=== PATIENT | male | born 1940 | race Caucasian/White ===

== ENCOUNTER → 2020-12-08 | Outpatient (CLI) | payer MEDICARE ==
--- NOTE | 2020-12-08 21:41 | ECHO ---
ECHOCARDIOGRAM DATE OF PROCEDURE: 12/08/2020 Age: 80 Gender: Male Height: 180 cm Weight: 96 kg REFERRING PHYSICIAN: Dr. Daniel Adamson INDICATION: Atrial fibrillation MEASUREMENTS: IVS 1.2 cm LV 5.3 cm LVPW 1.1 cm LA 6.6 cm Aorta 3.8 cm Ascending aorta 4.1 cm Left atrium volume index 94 IVC 3.8 cm FINDINGS: This study is of acceptable technical quality. Patient is in atrial fibrillation with ventricularly paced rhythm. Left ventricle is of normal size. Mild left ventricular hypertrophy is noted. There is septal wall motion abnormality related to RV pacing. Overall preserved LV systolic function with estimated LVEF of 50-55%. Right ventricle is dilated and hypokinetic. There is severe bi-atrial enlargement. 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 Aortic valve is tricuspid. It is sclerotic, but mobility of cusps is preserved. Mitral and tricuspid valves appear grossly normal. Pulmonic valve was poorly visualized, but grossly appears normal. No pericardial effusion is noted. Inferior vena cava is dilated at 3.8 cm without appreciable collapse with inspiration, indicative of very high central venous pressure. Aortic root is dilated at 3.8 cm. Visualized segment of ascending aorta is also dilated at 4.1 cm. Aortic arch and abdominal aorta were not well seen. Doppler interrogation of aortic valve reveals no significant stenosis and mild insufficiency. There is mild to moderate mitral and tricuspid insufficiency. Calculated pulmonary artery pressure is in 50's corresponding to at minimum to moderate pulmonary hypertension. Evaluation of diastolic function is inconclusive due to underlying atrial fibrillation. CONCLUSIONS: 1. Study is of acceptable technical quality, underlying atrial fibrillation with ventricular pacing. 2. Normal LV size with mild LVH, septal wall motion abnormality due to RV pacing and overall LVEF estimated at 50-55%. 3. Dilated hypokinetic right ventricle. 4. Aortic sclerosis with no stenosis and mild insufficiency. 5. Mild to moderate mitral and tricuspid insufficiency. 6. Severe bi-atrial enlargement. 7. Very high central venous pressure and at least moderate pulmonary artery pressure. 8. Dilated aortic root and ascending aorta (3.8 and 4.1 cm respectively).
== END ==
LOC: M CARPUL 11:16
PROVIDERS: ATTEND Internal Medicine
DX: I48.91 Unspecified atrial fibrillation (principal)

== ENCOUNTER 2021-02-12 06:12 | Day surgery (SDC) | payer MEDICARE ==
[~2021-02-12] VITALS: Ht 177.8 cm; Wt 94.4 kg
[~2021-02-12 06:12] MED LIST: ATEN100T PO; DIGO0.123 PO; GLUC1CAP10 PO; LIDOCAINE 1% MDV 20ML VIAL SQ PRN; LISI10TA22 PO; MAGN250T22 PO; VITA-243 PO; VITMTA PO; WARF-58 PO; WARF-60 PO
--- OUTSIDE RECORDS SUMMARY | 2021-02-12 06:16 | CCD | Continuity of Care Document ---
Author Author Héctor FRANCE MD Organization Unknown Address [address] [place] [address] Phone [phone] Care Team Providers Care Dietetic Assistant Name Role Phone Navin Boston MD AUTM [phone] Problems Active Problems Provider Date Essential hypertension Jourdan France JR, MD Onset: 01/13/20 21 Social History Type Date Description Comments Sex Unknown ETOH Use Denies alcohol use Tobacco Use Start: Unknown Denies Smoking Recreational Drug Use Denies Drug Use Allergies and adverse reactions Active Allergies Criticality Reaction | Severity Comments Date Statins Unable to assess criticality 01/13/2021 Medications Active Medications SIG Qnty Indications Ordering Provide r Date Atenolol 100mg Tablets one ta b daily Unknown Digoxin 125mcg Tablets 1 by mouth every day Unknown Lisinopril 10mg Tablets one t ab daily Unknown Warfarin Sodium 3mg Tablets Sat, tues, Fri Unknown Warfarin Sodium 6mg Tablets Mon, Wed, Thurs, Sat Unknown Glucosamine Chondroitin 1500 Complex 1500Com Capsules once daily Unknown Multi Vitamin Tablets 2 by mouth every day Unknown Vitamin C 500mg Capsules 1 tab by mouth twice a day Unknown Magnesium Gluconate 250mg Tablets Every other day Unknown Immunizations Description No Information Available Vital Signs Date Vital Result Comment 01/13/2021 2:10pm BP Systolic 129 mmHg BP Diastolic 79 mmHg Heart Rate 96 /min Body Temperature 97.9 F Height 71 inches 5'11" Weight 210.38 lb BMI (Body Mass Index) 29.3 kg/m2 [place] Body Weight 172 lb Weight 95.426 kg BSA (Body Surface Area) 2.15 m2 Results Description No Information Available Procedures Description No Information Available Medical Devices Description No Information Available Encounters Description No Information Available Assessments Description No Information Available Plan of Treatment Future Appointment(s):* 02/22/2021 8:30 am - Jourdan France JR, MD at [facility] * 02/12/2021 7:30 am - Jourdan France JR, MD at [facility] Functional Status Description No Information Available Mental Status Description No Information Available Referrals Refer to Dr Reason for Referral Status Appt Date Jourdan France JR, MD RIGHT INGUINAL HERNIA Scheduled [address] [address] [phone]
--- OUTSIDE RECORDS SUMMARY | 2021-02-12 06:16 | CCD | Continuity of Care Document ---
Author Author Héctor FRANCE MD Organization Unknown Address [address] [place] [address] Phone [phone] Care Team Providers Care Mobile Product Manager Name Role Phone Navin Boston MD AUTM [phone] Problems Active Problems Provider Date Essential hypertension [...] lb BMI (Body Mass Index) 29.3 kg/m2 [place] Body Weight 172 lb Weight 95.426 kg BSA (Body Surface Area) 2.15 m2 Results Description No Information Available Procedures Description No Information Available Medical Devices Description No Information Available Encounters Description No Information Available Assessments Description No Information Available Plan of Treatment Future Appointment(s):* 02/22/2021 8:30 am - Jourdan France JR, MD at [facility] * 02/12/2021 9:15 am - Jourdan France JR, MD at [facility] Functional Status Description No Information Available Mental Status Description No Information Available Referrals Refer to Dr Reason for Referral Status Appt Date Jourdan France JR, MD RIGHT INGUINAL HERNIA Scheduled [address] [address] [phone]
--- OUTSIDE RECORDS SUMMARY | 2021-02-12 06:16 | CCD | Continuity of Care Document ---
Author Author Héctor FRANCE MD Organization Unknown Address [address] [place] [address] Phone [phone] Care Team Providers Care Food Safety Coordinator Name Role Phone Navin Boston MD AUTM [phone] Problems Active Problems Provider Date Essential hypertension [...] lb BMI (Body Mass Index) 29.3 kg/m2 [place] Body Weight 172 lb Weight 95.426 kg BSA (Body Surface Area) 2.15 m2 Results Description No Information Available Procedures Description No Information Available Medical Devices Description No Information Available Encounters Description No Information Available Assessments Description No Information Available Plan of Treatment Future Appointment(s):* 02/22/2021 8:30 am - Jourdan France JR, MD at [facility] * 02/12/2021 7:30 am - Jourdan France JR, MD at [facility] Functional Status Description No Information Available Mental Status Description No Information Available Referrals Refer to Dr Reason for Referral Status Appt Date Jourdan France JR, MD RIGHT INGUINAL HERNIA Scheduled [address] [address] [phone]
--- OUTSIDE RECORDS SUMMARY | 2021-02-12 06:16 | CCD | Continuity of Care Document ---
Author Author Héctor FRANCE MD Organization Unknown Address [address] [place] [address] Phone [phone] Care Team Providers Care Chef De Froid Name Role Phone Navin Boston MD AUTM [phone] Problems Active Problems Provider Date Essential hypertension [...] lb BMI (Body Mass Index) 29.3 kg/m2 [place] Body Weight 172 lb Weight 95.426 kg BSA (Body Surface Area) 2.15 m2 Results Description No Information Available Procedures Description No Information Available Medical Devices Description No Information Available Encounters Description No Information Available Assessments Description No Information Available Plan of Treatment Future Appointment(s):* 02/22/2021 8:30 am - Jourdan France JR, MD at [facility] * 02/12/2021 7:30 am - Jourdan France JR, MD at [facility] Functional Status Description No Information Available Mental Status Description No Information Available Referrals Refer to Dr Reason for Referral Status Appt Date Jourdan France JR, MD RIGHT INGUINAL HERNIA Scheduled [address] [address] [phone]
--- OUTSIDE RECORDS SUMMARY | 2021-02-12 06:16 | CCD | Continuity of Care Document ---
Author Author Héctor FRANCE MD Organization Unknown Address [address] [place] [address] Phone [phone] Care Team Providers Care Electrode Turner And Finisher Name Role Phone Navin Boston MD AUTM [phone] Problems Active Problems Provider Date Essential hypertension [...] lb BMI (Body Mass Index) 29.3 kg/m2 [place] Body Weight 172 lb Weight 95.426 kg BSA (Body Surface Area) 2.15 m2 Results Description No Information Available Procedures Date Code Description Status 01/13/2021 12335 Office/Outpatient New Moderate M DM 45-59 Minutes Completed Medical Devices Description No Information Available Encounters Type Date Location Provider Dx Diagnosis Office Visit 01/13/2021 2:15p [facility] Jourdan vance JR, MD K40.90 Unil inguinal hernia, w/o obst or gangr, not spcf as recur Assessments Date Code Description Provider 01/13/2021 K40.90 Unilateral inguinal hernia, without obstruction or gangrene, not specified as recurrent Jourdan France JR, MD Plan of Treatment Future Appointment(s):* 02/22/2021 8:30 am - Jourdan France JR, MD at [facility] * 02/12/2021 7:30 am - Jourdan France JR, MD at [facility] 01/13/2021 - Jourdan France JR, MD* K40.90 Unilateral inguinal hernia, without obstruction or gangrene, not specified as recurrent* Comments:* The patient has a symptomatic right inguinal hernia and at this point I recommendation is to proceed with operative repair of this symptomatic right inguinal hernia. We've discussed open as well as laparoscopic techniques of inguinal hernia repair. We discussed the risks as well as benefits associated with inguinal h ernia repair both open and laparoscopic techniques. The patient would like to proceed with a laparoscopic technique and I agree with this . We've discussed laparoscopic TEP versus robotic T AP and the benefits as well as the techniques associated with the procedure itself and the risks associated with the procedures. Typical Postoperative recovery was discussed with the patient and expected postoperative course. The patient agrees to proceed with robotic assisted laparoscopic right inguinal hernia repair Functional Status Description No Information Available Mental Status Description No Information Available Referrals Refer to Reason for Referral Status Appt Date Jourdan France JR, MD RIGHT INGUINAL HERNIA Scheduled [address] [place] [address] [phone]
--- OUTSIDE RECORDS SUMMARY | 2021-02-12 06:17 | CCD ---
Author Author [facility] Organization [facility] Address Unknown Phone Unavailable Care Team Providers Care Adjunct Instructor Name Role Phone MD KAM GARZA Unavailable Unavailable CHECKS, JOHNY REMOTE SCHI Unavailable Unavailable Rob France JR, MD Unavailable Unavailable Rob France JR, MD Unavailable Unavailable Rob France JR, MD Unavailable Unavailable Rob France JR, MD Unavailable Unavailable Rob France JR, MD Unavailable Unavailable Rob France JR, MD Unavailable Unavailable Rob France JR, MD Unavailable Unavailable Rob France JR, MD Unavailable Unavailable Rob France JR, MD Unavailable Unavailable Rob France JR, MD Unavailable Unavailable Rob France JR, MD Unavailable Unavailable Rob France JR, MD Unavailable Unavailable Rob France JR, MD Unavailable Unavailable oRb France JR, MD Unavailable Unavailable Rob France JR, MD Unavailable Unavailable Rob France JR, MD Unavailable Unavailable Rob France JR, MD Unavailable Unavailable Rob Franec JR, MD Unavailable Unavailable Rob France JR, MD Unavailable Unavailable Rob France JR, MD Unavailable Unavailable Rob France JR, MD Unavailable Unavailable Rob France JR, MD Unavailable Unavailable Rob France JR, MD Unavailable Unavailable Rob France JR, MD Unavailable Unavailable Rob France JR, MD Unavailable Unavailable Rob France JR, MD Unavailable Unavailable Rob France JR, MD Unavailable Unavailable Rob France JR, MD Unavailable Unavailable Rob France JR, MD Unavailable Unavailable Rob France JR, MD Unavailable Unavailable Rob France JR, MD Unavailable Unavailable Rob France JR, MD Unavailable Unavailable Rob France JR, MD Unavailable Unavailable Rob France JR, MD Unavailable Unavailable Rob France JR, MD Unavailable Unavailable Rob France JR, MD Unavailable Unavailable Rob France JR, MD Unavailable Unavailable Rob Fracne JR, MD Unavailable Unavailable Rob France JR, MD Unavailable Unavailable Rob France JR, MD Unavailable Unavailable Rob France JR, MD Unavailable Unavailable Rob France JR, MD Unavailable Unavailable Rob France JR, MD Unavailable Unavailable Rob France JR, MD Unavailable Unavailable Rob France JR, MD Unavailable Unavailable Rob France JR, MD Unavailable Unavailable Rob France JR, MD Unavailable Unavailable Rob France JR, MD Unavailable Unavailable Rob France JR, MD Unavailable Unavailable Rob France JR, MD Unavailable Unavailable Rob France JR, MD Unavailable Unavailable Rob France JR, MD Unavailable Unavailable Rob France JR, MD Unavailable Unavailable Rob France JR, MD Unavailable Unavailable SMART, JOSH L Unavailable Unavailable Smart MD, Josh L Unavailable Smart MD, Josh L Unavailable Smart MD, Josh L Unavailable Smart MD, Josh L Unavailable Smart MD, Josh L Unavailable Smart MD, Johs L Unavailable Smart MD, Josh L Unavailable Smart MD, Josh L Unavailable Smart MD, Josh L Unavailable Smart MD, Josh L Unavailable Smart MD, Josh L Unavailable Smart MD, Josh L Unavailable Smart MD, Josh L Unavailable Smart MD, Josh L Unavailable Smart MD, Josh L Unavailable Smart MD, Josh L Unavailable Smart MD, Josh L Unavailable Smart MD, Josh L Unavailable Smart MD, Josh L Unavailable Smart MD, Josh L Unavailable Smart MD, Ojsh L Unavailable Smart MD, Josh L Unavailable Smart MD, Josh L Unavailable Smart MD, Josh L Unavailable Smart MD, Josh L Unavailable Smart MD, Josh L Unavailable Smart MD, Josh L Unavailable Smart MD, Josh L Unavailable Smart MD, Josh L Unavailable Smart MD, Josh L Unavailable Smart MD, Josh L Unavailable Smart MD, Josh L Unavailable Smart MD, Josh L Unavailable Smart MD, Josh L Unavailable Smart MD, Josh L Unavailable Smart MD, Josh L Unavailable Smart MD, Josh L Unavailable Smart MD, Josh L Unavailable Smart MD, Josh L Unavailable Smart MD, Josh L Unavailable Smart MD, Josh L Unavailable Smart MD, Josh L Unavailable Smart MD, Josh L Unavailable Smart MD, Josh L Unavailable Smart MD, Josh L Unavailable Smart MD, Josh L Unavailable Smart MD, Josh L Unavailable Smart MD, Josh L Unavailable Smart MD, Josh L Unavailable Smart MD, Josh L Unavailable Smart , Josh L Unavailable + Smart MD, Josh L Unavailable + Smart MD, Josh L Unavailable + Smart MD, Josh L Unavailable + Smart MD, Josh L Unavailable + Smart MD, Josh L Unavailable + JOSH BLANCAS Unavailable Unavailable Equinozzi, II Kam Unavailable Unavailable Equinozzi, II Kam Unavailable Unavailable Equinozzi, II Kam Unavailable Unavailable Equinozzi, II Kam Unavailable Unavailable Equinozzi, II Kam Unavailable Unavailable Equinozzi, II Kam Unavailable Unavailable Equinozzi, II Kam Unavailable Unavailable Equinozzi, II Kam Unavailable Unavailable Equinozzi, II Kam Unavailable Unavailable Equinozzi, II Kam Unavailable Unavailable Equinozzi, II Kam Unavailable Unavailable Equinozzi, II Kam Unavailable Unavailable Equinozzi, II Kam Unavailable Unavailable Equinozzi, II Kam Unavailable Unavailable Equinozzi, II Kam Unavailable Unavailable Equinozzi, II Kam Unavailable Unavailable Equinozzi, II Kam Unavailable Unavailable Equinozzi, II Kam Unavailable Unavailable Equinozzi, II Kam Unavailable Unavailable Equinozzi, II Kam Unavailable Unavailable Equinozzi, II Kam Unavailable Unavailable Equinozzi, II Kam Unavailable Unavailable Equinozzi, II Kam Unavailable Unavailable Equinozzi, II Kam Unavailable Unavailable Equinozzi, II Kam Unavailable Unavailable Equinozzi, II Kam Unavailable Unavailable Equinozzi, II Kam Unavailable Unavailable Equinozzi, II Kam Unavailable Unavailable Equinozzi, II Kam Unavailable Unavailable Equinozzi, II Kam Unavailable Unavailable Equinozzi, II Kam Unavailable Unavailable Equinozzi, II Kam Unavailable Unavailable Equinozzi, II Kam Unavailable Unavailable Equinozzi, II Kam Unavailable Unavailable Equinozzi, II Kam Unavailable Unavailable MD CINDY RAMOS Unavailable Unavailable DARIUS DISLAGNCHIUQI Unavailable Unavailable OTHER, PHYSICIAN REFERRING Unavailable UnavailKUNAL Flores MD Unavailable Unavailable KUNAL LUCAS MD Unavailable Unavailable KUNAL LUCAS MD Unavailable Unavailable KUNAL LUCAS MD Unavailable Unavailable LANCEKUNAL Estrada MD Unavailable Unavailable KUNAL LUCAS MD Unavailable Unavailable KUNAL LUCAS MD Unavailable Unavailable KUNAL LUCAS MD Unavailable Unavailable KUNAL LUCAS MD Unavailable Unavailable KUNAL LCUAS MD Unavailable Unavailable KUNAL LUCAS MD Unavailable Unavailable KUNAL LUCAS MD Unavailable Unavailable LANCEKUNAL Estrada MD Unavailable Unavailable KUNAL LUCAS MD Unavailable Unavailable JOSH BLANCAS Unavailable Unavailable Ileana Gan MD Unavailable Unavailable Ileana Gan MD Unavailable Unavailable Ileana Gan MD Unavailable Unavailable Ileana aGn MD Unavailable Unavailable DEFAULT, PROVIDER Unavailable Unavailable BROOKE, FILIPPO PA Unavailable Unavailable BROOKE, FILIPPO PA Unavailable Unavailable BROOKE, FILIPPO PA Unavailable Unavailable BROOKE, FILIPPO PA Unavailable Unavailable BROOKE, FILIPPO PA Unavailable Unavailable BROOKE, FILIPPO PA Unavailable Unavailable BROOKE, FILIPPO PA Unavailable Unavailable BROOKE, FILIPPO PA Unavailable Unavailable BROOKE, FILIPPO PA Unavailable Unavailable BROOKE, FILIPPO PA Unavailable Unavailable BROOKE, FILIPPO PA Unavailable Unavailable MEL, S KUNAL MD Unavailable Unavailable LEAL, S KUNAL MD Unavailable Unavailable LEAL, S KUNAL MD Unavailable Unavailable LEAL, S KUNAL MD Unavailable Unavailable LEAL, S KUNAL MD Unavailable Unavailable LEAL, S KUNAL MD Unavailable Unavailable LEAL, S KUNAL MD Unavailable Unavailable LEAL, S KUNAL MD Unavailable Unavailable LEAL, S KUNAL MD Unavailable Unavailable LEAL, S KUNAL MD Unavailable Unavailable LEAL, S KUNAL MD Unavailable Unavailable LEAL, S KUNAL MD Unavailable Unavailable LEAL, S KUNAL MD Unavailable Unavailable LEAL, S KUNAL MD Unavailable Unavailable LEAL, S KUNAL MD Unavailable Unavailable LEAL, S KUNAL MD Unavailable Unavailable LEAL, S KUNAL MD Unavailable Unavailable LEAL, S KUNAL MD Unavailable Unavailable LEAL, S KUNAL MD Unavailable Unavailable LEAL, S KUNAL MD Unavailable Unavailable LEAL, S KUNAL MD Unavailable Unavailable LEAL, S KUNAL MD Unavailable Unavailable LEAL, S KUNAL MD Unavailable Unavailable LEAL, S KUNAL MD Unavailable Unavailable LEAL, S KUNAL MD Unavailable Unavailable LEAL, S KUNAL MD Unavailable Unavailable LEAL, S KUNAL MD Unavailable Unavailable LEAL, S KUNAL MD Unavailable Unavailable LEAL, S KUNAL MD Unavailable Unavailable LEAL, S KUNAL MD Unavailable Unavailable LEAL, S KUNAL MD Unavailable Unavailable LEAL, S KUNAL MD Unavailable Unavailable ANTICOAG, GENEVA Unavailable Unavailable Rob France JR, MD Unavailable Unavailable Rob France JR, MD Unavailable Unavailable Rob France JR, MD Unavailable Unavailable Rob France JR, MD Unavailable Unavailable Rob France JR, MD Unavailable Unavailable Rob France JR, MD Unavailable Unavailable Rob France JR, MD Unavailable Unavailable Rob France JR, MD Unavailable Unavailable Rob France JR, MD Unavailable Unavailable Rob France JR, MD Unavailable Unavailable Rob France JR, MD Unavailable Unavailable Rob France JR, MD Unavailable Unavailable Rob France JR, MD Unavailable Unavailable Rob rFance JR, MD Unavailable Unavailable Rob France JR, MD Unavailable Unavailable Rob France JR, MD Unavailable Unavailable Rob France JR, MD Unavailable Unavailable Rob France JR, MD Unavailable Unavailable oRb France JR, MD Unavailable Unavailable Rob France JR, MD Unavailable Unavailable Rob France JR, MD Unavailable Unavailable Rob France JR, MD Unavailable Unavailable Rob France JR, MD Unavailable Unavailable Rob France JR, MD Unavailable Unavailable Rob France JR, MD Unavailable Unavailable Rob France JR, MD Unavailable Unavailable Rob France JR, MD Unavailable Unavailable Rob France JR, MD Unavailable Unavailable Rob France JR, MD Unavailable Unavailable Rob France JR, MD Unavailable Unavailable Rob France JR, MD Unavailable Unavailable Rob France JR, MD Unavailable Unavailable Rob France JR, MD Unavailable Unavailable Rob France JR, MD Unavailable Unavailable Rob France JR, MD Unavailable Unavailable Rob France JR, MD Unavailable Unavailable Rob France JR, MD Unavailable Unavailable Rob France JR, MD Unavailable Unavailable Rob France JR, MD Unavailable Unavailable Rob France JR, MD Unavailable Unavailable Rob France JR, MD Unavailable Unavailable Rob France JR, MD Unavailable Unavailable Rob France JR, MD Unavailable Unavailable Rob France JR, MD Unavailable Unavailable Rob France JR, MD Unavailable Unavailable Rob France JR, MD Unavailable Unavailable Rob France JR, MD Unavailable Unavailable Rbo France JR, MD Unavailable Unavailable Rob France JR, MD Unavailable Unavailable Rob France JR, MD Unavailable Unavailable Rob France JR, MD Unavailable Unavailable Rob France JR, MD Unavailable Unavailable Rob France JR, MD Unavailable Unavailable Rob France JR, MD Unavailable Unavailable Josh Blancas Unavailable Unavailable Josh Blancas Unavailable Unavailable NON, PHYSICIAN STAFF Unavailable Unavailable Re-disclosure Warning The records that you are about to access may contain information from federally-assisted alcohol or drug abuse programs. If such information is present, then the following federally mandated warning applies: This information has been disclosed to you from records protected by federal confidentiality rules (42 CFR part 2). The federal rules prohibit you from making any further disclosure of this information unless further disclosure is expressly permitted by the written consent of the person to whom it pertains or as otherwise permitted by 42 CFR part 2. A general authorization for the release of medical or other information is NOT sufficient for this purpose. The Federal rules restrict any use of the information to criminally investigate or prosecute any alcohol or drug abuse patient.The records that you are about to access may contain highly sensitive health information, the redisclosure of which is protected by Article 27-F of the [facility] Public Health law. If you continue you may have access to information: Regarding HIV / AIDS; Provided by facilities licensed or operated by the [facility] Office of Mental Health; or Provided by the [facility] Office for People With Developmental Disabilities. If such information is present, then the following [facility] mandated warning applies: This information has been disclosed to you from confidential records which are protected by state law. State law prohibits you from making any further disclosure of this information without the specific written consent of the person to whom it pertains, or as otherwise permitted by law. Any unauthorized further disclosure in violation of state law may result in a fine or retirement sentence or both. A general authorization for the release of medical or other information is NOT sufficient authorization for further disc losure. Encounters Encounter Providers Location Date Indications Data Source(s ) Outpatient Attender: Jourdan Tolentino itter: Jourdan Dunnesultant: KUNAL LEAL MD 02/08/2021 11:02:00 AM EST - 02/08/2021 11:02:00 AM EST LAB TEST [facility] LAB TEST Outpatient Attender: Jourdan Tolentino itter: Jourdan Jollyant: KUNAL LEAL MD 02/05/2021 04:30:55 PM EDT COVID SCREENING [facility] COVID SCREENING Admission cancelled. Disregard status an d admitted date. Outpatient Attender: FILIPPO NOYOLA CPSCAORT-CPSLADER 07/2020 02:19:00 PM EDT - 02/04/2021 02:20:00 PM EDT D48.9 [facility] D48.9 Patient discharged. Outpatient Attender: Miguelito Bruce er: REFERRING OTHERAdmitter: Miguelito BlancasConsultant: KUNAL LEAL MD 02/01/2021 11:28:00 AM E DT Physical therapy [facility] Physical therapy Outpatient Attender: Desmond Blancas MDReferrer: Desmond Blancas MD 01/29/2021 06:26:58 AM EDT [facility] Outpatient Attender: KAM Capps mitter: KAM EQUINOZZIConsultant: KUNAL LEAL MD 008 01/19/2021 09:49:00 AM EDT - 01/19/2021 09:49:00 AM EDT STANDING ORDER [facility] STANDING ORDER Outpatient Attender: Jourdan Weir/Emil/Nick/Gerry espinal 01/13/2021 02:15:00 PM EDT [facility] ([facility] actice, ) Outpatient Attender: KAM MOREIRAINONia mitter: KAM EQUINOZZIConsultant: KUNAL LEAL MD 008 01/06/2021 09:36:00 AM EDT - 01/06/2021 09:36:00 AM EDT Lab test [facility] Lab test Outpatient Attender: PROVIDER DEFAULTReferrer: ARMANDO LUCAS MD RGHUSHEN-RGHRADHEN 01/05/2021 09:07:27 AM EDT - 01/05/2021 11:59:27 PM EDT [facility] Patient discharged. Outpatient Attender: KUNAL LUCAS MDReferrer: Terrance Garza RGHUSHEN-RRHORTHHEN 01/05/2021 09:06:57 AM EDT - 01/05/2021 09:37:45 AM EDT [facility] Patient discharged. Outpatient Attender: Miguelito Bruce er: DR HERNANDEZ OTHERAdmitter: Miguelito BlancasConsultant: KUNAL LEAL MD 12/31/2020 03:51:1 6 PM EDT - 01/31/2021 11:26:00 AM EDT PHYSICAL THERAPY [facility] PHYSICAL THERAPY Patient discharged. Outpatient Attender: Miguelito Bhatiaitt er: Miguelito BlancasConsultant: KUNAL LEAL MD 12/29/2020 01:44:00 PM EDT - 12/31/2020 10:52:00 AM EDT PHYSICAL THERAPY [facility] PHYSICAL THERAPY Patient discharged. Outpatient Attender: Desmond Blancas MDReferrer: Kam Garza 12/25/2020 08:12:34 AM EDT [facility] Outpatient Attender: KAM Capps mitter: KAM MOREIRAINOLUXIConsultant: KUNAL LEAL MD 008 12/22/2020 09:01:00 AM EDT - 12/22/2020 09:01:00 AM EDT STANDING ORDER [facility] STANDING ORDER Outpatient Attender: Desmond SINeferrer: Kam Garza 12/08/2020 03:14:28 PM EDT [facility] Outpatient Referrer: Desmond BLANCAS MOB-MOB.PAT 12/08/2020 09: 00:54 AM EDT - 12/08/2020 09:00:59 AM EDT [facility] Outpatient Attender: MD CINDY RAMOS WNYSCHICLF-WNYSCHICL F 12/01/2020 02:43:16 PM EDT - 12/01/2020 03:23:44 PM EDT [facility] Patient discharged. Outpatient Attender: JUICE RADER WNYOBFLMAG-WNYIMFLMAG 11/30/2020 12:53:42 PM EDT [facility] Outpatient Attender: DARIUS DISLA WNYOBFLMAG- WNYIMFLMAG 11/30/2020 12:50:51 PM EDT - 11/30/2020 01:34:42 PM EDT [facility] Patient discharged. Outpatient Attender: Desmond BLANCASReferrer: Desmond BLANCAS MOB-MOB.PAT 11/26/2020 12:07:47 PM EDT - 11/26/2020 01:24:44 PM EDT [facility] Outpatient Attender: KAM Capps mitter: KAM EQUINOZZIConsultant: KUNAL LEAL MD 008 11/25/2020 10:03:00 AM EDT - 11/25/2020 08:06:00 AM EDT LAB TEST [facility] LAB TEST Patient discharged. Outpatient Attender: BRIDGET JACK RGHSCHICW-RGHSCHICW 2020 04:00:33 PM EDT - 11/02/2020 11:59:33 PM EDT [facility] Patient discharged. Outpatient Attender: KAM Capps mitter: KAM Ronquillosultant: KUNAL LEAL MD 008 10/28/2020 08:51:00 AM EDT - 10/28/2020 08:51:00 AM EDT LAB [facility] LAB Inpatient Attender: Desmond BLANCASAttender: Desmond SMARTAdmitter: Desmond SM ART [id number] 10/19/2020 03:29:57 PM EDT - 12/12/2020 11:21:00 AM EDT [facility] Patient discharged. Outpatient Attender: KAM Capps mitter: KAM Ronquillosultant: KUNAL LEAL MD 008 09/30/2020 08:34:00 AM EDT - 09/30/2020 08:34:00 AM EDT Lab test [facility] Lab test Outpatient Attender: JOSH Hartmannsuant: STAFF ROSEN 09/07/2020 01:09:00 PM EDT - 09/07/2020 02:09:00 PM EDT [facility] Outpatient Attender: KAM Capps mitter: KAM Ronquillosultant: KUNAL LEAL MD 008 09/03/2020 09:01:00 AM EDT - 09/03/2020 09:01:00 AM EDT LAB TEST [facility] LAB TEST Outpatient Attender: Deshawn Gan MD WNYSCHICLF-WNYSCHICLF 10:35:58 AM EDT - 08/20/2020 11:27:[address] [facility] Patient discharged. Outpatient Attender: Kam Garza WNYOBFLMAG-WNYIMFLMAG 08/11/2020 12:47:56 PM EDT - 08/11/2020 01:23:15 PM EDT [facility] Patient discharged. Outpatient Attender: Desmond Blancas MDReferrer: Kam Moreirainobarbie 08/07/2020 06:29:43 AM EDT [facility] Recurring Patient Referrer: Kam Equinozzi 08/06/2020 10 :35:46 AM EDT [facility] Recurring Patient Referrer: Kam Equinozzi 08/06/2020 10 :34:59 AM EDT [facility] Recurring Patient Referrer: Kam Equinozzi 08/06/2020 10 :31:05 AM EDT [facility] Outpatient Attender: KAM Li tender: DR HERNANDEZ OTHERAdmitter: KAM LUONGLUXIConsultant: KUNAL LEAL MD 008 08:41:00 AM EDT - 08/05/2020 08:41:00 AM EDT LAB TEST [facility] LAB TEST Recurring Patient Referrer: Kam Moreirainoluxi 06/11/2020 11 :26:08 AM EST [facility] Recurring Patient Referrer: Kam Equinozzi 06/11/2020 11 :18:42 AM EST [facility] Outpatient Attender: BRIDGET JACK RGHSCHICW-RGHSCHICW 2019 02:12:11 PM EST - 03/12/2020 11:59:11 PM EST [facility] Patient discharged. Outpatient Founder And Chief Executive Officer: KUNAL LEAL MD 008 1 04/20/2019 08:20:00 AM EST - 02/19/2020 08:20:00 AM EST Lab test [facility] Lab test Outpatient Attender: KUNAL LEAL MD Admitter: KUNAL LEAL MDConsultant: KUNAL LEAL MD 008 01/22/2020 08:44:00 AM EDT - 01/22/2020 08:44:00 AM EDT Lab test [facility] Lab test Patient discharged. Outpatient Attender: KUNAL LEAL MD Admitter: KUNAL LEAL MDConsultant: KUNAL LEAL MD 008 12/25/2019 08:11:00 AM EDT - 12/25/2019 08:11:00 AM EDT Lab test [facility] Lab test Immunizations Vaccine Date Status Description Data Source(s) COVID-19 VACCINE Moderna 02/03/2021 12:00:00 AM EDT completed [place] Vaccine Series Complete: YESThis Data wa s Submitted to [facility] Via [employer]. COVID-19 VACCINE Moderna 06/11/2020 12:00:00 AM EST completed [place] Vaccine Series Complete: YESThis Data wa s Submitted to [facility] [employer]. COVID-19 VACCINE Moderna 06/03/2020 12:00:00 AM EST completed [place] Vaccine Series Complete: YESThis Data wa s Submitted to [facility] [employer]. 207 06/03/2020 12:00:00 AM EST completed <td I D="[id number]">Covid-19 (Moderna)</td><td>06/03/2020, 05/06/2020</td><td></td> [facility] COVID-19 VACCINE Moderna 05/14/2020 12:00:00 AM EST completed [place] Vaccine Series Complete: YESThis Data wa s Submitted to [facility] [employer]. 207 05/06/2020 12:00:00 AM EST completed <td I D="[id number]">Covid-19 (Moderna)</td><td>06/03/2020, 05/06/2020</td><td></td> [facility] COVID-19 VACCINE Moderna 05/06/2020 12:00:00 AM EST completed [place] Vaccine Series Complete: YESThis Data wa s Submitted to [facility] Via [employer]. Medications Medication Brand Name Start Date Product Form Dose Route Admi nistrative Instructions Pharmacy Instructions Status Indications Reaction Description Data Source(s) Bisacodyl 10 MG Rectal Suppository bisacodyl (DULCOLAX ) suppository 10 mg bisacodyl (DULCOLAX) suppository 10 mg 12/13/2020 06:00:00 AM EDT 10 mg Rectal active 10 mg, Rectal, Once, On 12/13/20 at 0600, For 1 dose, Post- op
Hold for
[facility] Medication administered onsite 0.3 ML Enoxaparin sodium 100 MG/ML Prefi lled Syringe enoxaparin (LOVENOX) syringe 30 mg enoxaparin (LOVENOX) syringe 30 mg 12/12/2020 09:00:00 AM EDT 30 mg Subcutaneous active 30 mg, Subcutaneous, Every 12 hours (scheduled), First dose on 12/12/20 at 0900, Post-op
If platelet count is less than 90,000 or hematocrit is less than 25, or if there is a 5 point decrease in hematocrit, do not give the dose and call physician/designee.
[facility] Medication administered onsite Magnesium Hydroxide 80 MG/ML Oral Suspen theresa magnesium hydroxide (MILK OF MAGNESIA) 400 MG/5ML suspension 30 mL magnesium hydroxide (MILK OF MAGNESIA) 4 00 MG/5ML suspension 30 mL 12/12/2020 09:00:00 AM EDT 30 mL Oral active 30 mL, Oral, Daily, First dose on 12/12/20 at 0900, Post-op
hold for loose stools
[facility] Medication administered onsite tramadol hydrochloride 50 MG Oral Tablet traMADol (ULT CHARLIE) tablet 25 mg traMADol (ULTRAM) tablet 25 mg 12/12/2020 07:46:07 AM EDT 25 mg Oral active 25 mg, Oral, Every 6 hours PRN, moderate pain (4-6), Starting on 12/12/20 at 0746, For 7 days [facility] Medication administered onsite tramadol hydrochloride 50 MG Oral Tablet traMADol (ULT CHARLIE) 50 MG tablet traMADol (ULTRAM) 50 MG tablet 12/12/2020 12:00:00 AM EDT mg Oral active Take 0.5-1 tablets (25-50 mg total) by mouth every 6 (six) hours as needed for pain Max Daily Amount: 200 mg [facility] Docusate Sodium 50 MG / sennosides, [facility] 8.6 MG Oral Tablet senna-docusate (PERICOLACE) 8.6-50 MG 2 tablet senna-docusate (PERICOLACE) 8.6-50 MG 2 tablet 12/11/2020 09:00:00 PM EDT 2 {tbl} Oral active 2 tablet, Oral, Nightly, First dose on Mon12/11/20 at 2100, Post-op
hold for loose stools
[facility] Medication administered onsite Warfarin Sodium 3 MG Oral Tablet warfarin (COUMADIN) t ablet 6 mg warfarin (COUMADIN) tablet 6 mg 12/11/2020 05:00:00 PM EDT 6 mg Oral completed 6 mg, Oral, WAR17, First dose on Mon12/11/20 at 1700, For 1 dose
For administration and preparation considerations, refer to Hazardous Drugs in the Workplace Policy on Intranet.
[facility] Medication administered onsite Digoxin 0.125 MG Oral Tablet digoxin (LANOXIN) tablet 125 mcg digoxin (LANOXIN) tablet 125 mcg 12/11/2020 05:00:00 PM EDT 125 ug Oral act mil 125 mcg, Oral, Daily, First dose on Mon12/11/20 at 1700 [facility] Medication administered onsite 1 ML Ketorolac Tromethamine 15 MG/ML [place] tr[place] ketorolac (TORADOL) injection 15 mg ketorolac (TORADOL) injection 15 mg 12/11/2020 03:00:00 PM EDT 15 mg Intravenous active 15 mg, Intrav enous, Every 6 hours (scheduled), First dose on Mon12/11/20 at 1500, For 24 hours, Post-op
Pharmacy may renally dose per NSAID policy.
[facility] Medication administered onsite Acetaminophen 500 MG Oral Tablet acetaminophen (TYLENO L) tablet 1,000 mg acetaminophen (TYLENOL) tablet 1,000 mg 12/11/2020 03:00:00 PM EDT 1000 mg Oral active 1,000 mg, Oral , Every 6 hours (scheduled), First dose on Mon12/11/20 at 1500, Post-op [facility] Medication administered onsite normal saline flush 0.9 % injection 3 mL [id number] 12/11/2020 02:00:00 PM EDT 3 mL Intravenous active 3 mL , Intravenous, Every 8 hours (scheduled), First dose on Mon12/11/20 at 1400, Post-op
flush per protocol, D/C Main IV fluid if appropriate
[facility] Medication administered onsite Atenolol 50 MG Oral Tablet atenolol (TENORMIN) tablet 100 mg atenolol (TENORMIN) tablet 100 mg 12/11/2020 02:00:00 PM EDT 100 mg Oral acti ve 100 mg, Oral, Daily, First dose on Mon12/11/20 at 1400 [facility] Medication administered onsite cefazolin (ANCEF) injection 2 g drug or medication 12/11/2020 02:00 :00 PM EDT 2 g Intravenous active Perioperative Pharmacoprophy laxis 2 g, Intravenous, Administer over 6 Minutes, Every 8 hours (relative), First dose on Mon12/11/20 at 1400, For 3 doses, Post-op
Start 4 hours after pre-op dose, then every 8 hours x 2 doses. Time pre-op dose hun RN may administer IV push or infuse this medication through syringe adapter set ref [id number]. Flush line after use
[facility] Perioperative Pharmacoprophylaxis Medication administered onsite sodium chloride 0.9% (NS) infusion 2540-0599-62 12/11/2020 02:00:00 P M EDT Intravenous active at 100 mL/hr, Intravenous, Continuous, Starting on Mon12/11/20 at 1400, Post-op [facility] Medication administered onsite Patient on Coumadin during hospitalizati on. (To order Coumadin on discharge click the don t prescribe button and go to new orders on discharge section. Coumadin can be ordered there. Alternatively, reconcile the pre admission Coumadin dose if it appears on the list below) drug or medication 12/11/2020 12:53:57 PM EDT 1 {each} active 1 each, Mi scellaneous, Daily Coumadin Notification (1000), Starting on Mon12/11/20 at 1253, Until Discontinued
Indication for Warfarin: Atrial Fibrillation
Target INR: 2 to 3 [facility] Medication administered onsite oxyCODONE (ROXICODONE) immediate release tablet 2.5 mg [id number] [id number] 12/11/2020 12:53:57 PM EDT 2.5 mg Oral active 2.5 mg, Oral, 2 times daily PRN, for pre-emptive pain control prior to PT, Starting on Mon12/11/20 at 1253, For 7 days, Post-op
Administer 1 hour prior to PT
[facility] Medication administered onsite Metoclopramide 10 MG Oral Tablet metoclopramide (JESSICA N) tablet 10 mg metoclopramide (REGLAN) tablet 10 mg 12/11/2020 12:53:56 PM EDT 10 mg Oral active 10 mg, Oral, Melanie ry 6 hours PRN, nausea, Starting on Mon12/11/20 at 1253, Post-op [facility] Medication administered onsite 2 ML Metoclopramide 5 MG/ML Prefilled Sy ringe metoclopramide (REGLAN) injection 10 mg metoclopramide (REGLAN) injection 10 mg 12/11/2020 12:53:56 PM E DT 10 mg Intravenous active 10 mg, I ntravenous, Every 6 hours PRN, for N/V if unable to take PO metoclopramide, Starting on Mon12/11/20 at 1253, Post-op [facility] Medication administered onsite metaxalone 800 MG Oral Tablet metaxalone (SKELAXIN) ta blet 800 mg metaxalone (SKELAXIN) tablet 800 mg 12/11/2020 12:53:56 PM EDT 800 mg Oral active 800 mg, Oral, Every 8 hours PRN, muscle spasms, Starting on Mon12/11/20 at 1253, Post-op
First line for all patients
[facility] Medication administered onsite Ondansetron 4 MG Disintegrating Oral Tab let ondansetron (ZOFRAN-ODT) disintegrating tablet 4 mg ondansetron (ZOFRAN-ODT) disintegrating tablet 4 mg 12/11/2020 12:53:56 PM EDT 4 mg Oral active 4 mg, Oral, Every 4 hours PRN, nausea, vomiting, for N/V not relieved by metoclopramide, Starting on Mon12/11/20 at 1253, Post-op [facility] Medication administered onsite ondansetron (ZOFRAN) injection 4 mg [id number] 12/11/2020 12:53:5 6 PM EDT 4 mg Intravenous active 4 mg, In travenous, Every 4 hours PRN, nausea, vomiting, for N/V not controlled by Reglan and unable to take PO ondansetron, Starting on Mon12/11/20 at 1253, Post-op [facility] Medication administered onsite fluticasone (FLONASE) 50 MCG/ACT nasal spray 1 spray [id number] 12/11/2020 12:53:56 PM EDT 1 {spray} Nasal active 1 spray, Nasal, Daily PRN, congestion, allergies, Starting on Mon12/11/20 at 1253 [facility] Medication administered onsite fentaNYL Citrate (PF) (SUBLIMAZE) injection 25 mcg [id number] -[id number] 12/11/2020 12:53:56 PM EDT 25 ug Intravenous active 25 mcg, Intravenous, Every 3 hours PRN, for severe breakthrough pain (7-10) if oral opioid ineffective within one hour, Starting on Mon12/11/20 at 1253, For 7 days, Post-op [facility] Medication administered onsite Mineral Oil 1000 MG/ML Enema mineral oil enema 1 enema mineral oil enema 1 enema 12/11/2020 12:53:56 PM EDT 1 {enema} Rectal active 1 enema, Rectal, Daily PRN, constipation, unrelieved by MOM, Starting on Mon12/11/20 at 1253, Post-op
hold for loose stools
[facility] Medication administered onsite Oxycodone Hydrochloride 5 MG Oral Tablet oxyCODONE (ROXICODONE) immediate release tablet 5 mg oxyCODONE (ROXICODONE) immediate release tablet 5 mg 12/11/2020 12:53:56 PM EDT 5 mg Oral active 5 mg, Oral, Every 4 hours PRN, severe pain (7-10), Starting on Mon12/11/20 at 1253, For 7 days, Post-op [facility] Medication administered onsite Aluminum Hydroxide 40 MG/ML / Magnesium Hydroxide 40 MG/ML / Simethicone 4 MG/ML Oral Suspension alum & mag hydroxide-simeth 200-200-20 MG/5ML suspension 30 mL alum & mag hydroxide-simeth 200-200-20 MG/5ML suspension 30 mL 12/11/2020 12:53:55 PM EDT 30 mL Oral active 30 mL, Oral, Every 4 hours PRN, indigestion, unrelieved by Tums, Starting on Mon12/11/20 at 1253, Post-op [facility] Medication administered onsite Calcium Carbonate 500 MG Chewable Tablet calcium carbonate (TUMS) chewable tablet 500-1,000 mg calcium carbonate (TUMS) chewable tablet 500-1,000 mg 12/11/2020 12:53:55 PM EDT mg Oral active 500-1,000 mg, Oral, Every 4 hours PRN, indigestion, heartburn, indigestion, Starting on Mon12/11/20 at 1253, Post-op [facility] Medication administered onsite Magnesium Chloride 0.22690 MEQ/ML / Pota ssium Chloride 0.0497 MEQ/ML / Sodium Acetate 0.0163 MEQ/ML / Sodium Chloride 0.0899 MEQ/ML / Sodium gluconate 5.02 MG/ML Injectable Solution [Normosol-R] electrolyte-R (NORMOSOL-R/PLASMALYTE-R) solution electrolyte-R (NORMOSOL-R/PLASMALYTE-R) solution 12/11 08:00:00 AM EDT Intravenous active at 1 00 mL/hr, Intravenous, Continuous, Starting on Mon12/11/20 at 0800, Pre-op [facility] Medication administered onsite heparin (porcine) injection 5,000 Units [id number] 12/12/19 08:00:00 AM EDT 5000 U Subcutaneous completed 5,000 Uni ts, Subcutaneous, metal cut off saw tender to O.R., On Mon12/11/20 at 0800, For 1 dose, Pre-op
If platelet count is less than 100,000 or hematocrit is less than 30, or there is a 5 point decrease in hematocrit, do not give the dose and call physician/designee
[facility] Medication administered onsite celecoxib 200 MG Oral Capsule celecoxib (CeleBREX) 200 MG capsule celecoxib (CeleBREX) 200 MG capsule 200 mg Oral aborted Take 200 mg by mouth daily [facility] Insurance Providers Payer name Policy type / Coverage type Policy ID Covered green party ID Covered green party's relationship to jackson Policy Jackson Plan Information TODAYS OPTIONS [id number] Patient is Insured [id number] [facility] [id number] Self [id number] EXCELLUS BCBS MEDICARE Medicare [id number] Blue Shield Medicare P [id number] SELF [id number] [employer]BS MEDICARE [id number] Andie [id number] EXCELLUS HMO [id number] Self VYMM [id number] Blue Shield Medicare P [id number] SELF [id number] INSURANCE COVID-19 [id number] xOCID 2 [id number] INSURANCE COVID-19 COCID Andie C OCID [facility]) Commercial [id number] Self [id number] [facility]) Commercial [id number] Self [id number] [employer]ESSIVE-OP [id number] undefined [id number] [facility]) Commercial [id number] Self [id number] [employer]ESS[employer] -RECURRING [id number] 18 [id number] BLUE CROSS BLUE SHIELD -O/P [id number] 18 [id number] BLUE CROSS MEDICARE ADVANTAGE [id number] S [id number] BLUE CROSS -RECURRING [id number] undefined [id number] MEDICARE BLUE PPO 306 [id number] SP [id number] EXCELLUS BLUECROSS/BLUESHIELD-OP BC [id number] unde fined [id number] MEDICARE BLUE PPO 306 [id number] SP [id number] MEDICARE BLUE PPO INSURANCE-OP [id number] undefi mary [id number] [facility] [id number] undefined [id number] [employer]ICARE [id number] S [id number] Problems, Conditions, and Diagnoses Code Display Name Description Problem Type Effective Dates Data Source(s) Z85.828 Personal history of other malignant neop lasm of skin PERSONAL HISTORY OF OTHER MALIGNANT NEOPLASM OF SKIN Diagnosis 02/04/2021 02:19:00 PM EDT [facility] L57.8 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 D22.9 Melanocytic nevi, unspecified MELANOCYTIC NEVI, UNSPEC IFIED Diagnosis 02/04/2021 02:19:00 PM [facility] L98.9 Disorder of the skin and subcutaneous ti ssue, unspecified DISORDER OF THE SKIN AND SUBCUTANEOUS TISSUE, UNSPECIFIED Diagnosis 02/04[facility]2021 [facility] Actinic keratosis ACTINIC KERATOSIS Diagnosis 02/04/2021 02:19:00 PM 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 anticoagulants Diagnosis 01/19/2021 09:49:00 AM T [facility] Follow-up Follow-up Diagnosis 01/05/2021 09:06:57 AM ED T [facility] Z96.642 Presence of left artificial hip joint Pr esence of left artificial hip joint Diagnosis 01/05/2021 09:06:57 AM EDT [facility] M6281 Muscle weakness (generalized) Muscle weakness (general ized) Diagnosis 01/01/2021 11:32:00 AM [facility] S13874 Pain in right shoulder Pain in right shoulder Diagnosi s 01/01/2021 11:32:00 AM EDT [facility] Z5189 Encounter for other specified aftercare Encounter for other specified aftercare Diagnosis 01/01/2021 11:32:00 AM EDT [facility] E12586 Stiffness of right shoulder, not elsewhe re classified Stiffness of right shoulder, not elsewhere classified Diagnosis 12/29/2020 01:44:00 PM ED T [facility] M25.511 Pain in right shoulder Pain in right shoulder Diagnosi s 12/11/2020 06:33:00 AM EDT [facility] U07.1 COVID-19 COVID-19 Diagnosis 12/08/2020 09:00:54 AM ED T [facility] Clearance Clearance Diagnosis 12/01/2020 02:43:16 PM ED T [facility] Pre-op Exam Pre-op Exam Diagnosis 11/30/2020 12:50:51 PM EDT [facility] N59852 Complete rotator cuff tear o r rupture of right shoulder, not specified as traumatic Complete rotator cuff tear or rupture of right shoulder, not specified as traumatic Diagnosis 09/07/2020 01:09:00 PM EDT [facility] I44.2 Atrioventricular block, complete Atrioventricula r block, complete Diagnosis 03/12/2020 02:12:11 PM EST [facility] E785 Hyperlipidemia, unspecified Hyperlipidemia, unspecifie d Diagnosis 01/22/2020 08:44:00 AM EDT [facility] Z09 Encounter for follow-up exam ination after completed treatment for conditions other than malignant neoplasm Encounter for follow-up examination afte r completed treatment for conditions other than malignant neoplasm Diagnosis 01/22/2020 08:44:00 AM EDT [facility] I4891 Unspecified atrial fibrillation Unspecified atrial fib rillation Diagnosis 01/22/2020 08:44:00 AM EDT [facility] Z5181 Encounter for therapeutic drug level mon itoring Encounter for therapeutic drug level monitoring Diagnosis 12/25/2019 08:11:00 AM EDT [facility] [id number] Essential hypertension Essential hypertension Problem 01/12/2021 12:00:00 AM EDT [facility] ([facility], ) 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 [id number] 12/11/2020 12:00:00 AM EDT [facility] M19.011 Primary osteoarthritis of right shoulder Primary osteoarthritis of right shoulder [id number] 12/11/2020 12:00:00 AM EDT [facility] I10 Hypertension Hypertension [id number] 12/11/2020 12:00:00 A M EDT [facility] I48.91 Atrial fibrillation Atrial fibrillation [id number] 12/11/2020 12:00:00 AM EDT [facility] Surgeries/Procedures Procedure Description Date Indications Data Source(s) Hospital outpatient clinic visit for assessment and ma nagement of a patient Hospital Outpatient Clinic Visit 02/04/2021 12:00:00 AM EDT [facility] DESTRUCTION PREMALIGNANT LESION 2-14 EA DESTRUCT PREMALG LES 2-14 02/04/2021 12:00:00 AM EDT [facility] DESTRUCTION PREMALIGNANT LESION 1ST DESTRUCT PREMALG LESION 02/04/2021 12:00:00 AM EDT [facility] OFFICE OUTPATIENT NEW 45 MINUTES 01/13/2021 12:00:00 A M EDT [facility] ([facility], ) BLOOD COUNT HEMATOCRIT <td>HEMATOCRIT</td><td>Routi ne</td><td>12/12/2020 3:45 AM EDT</td><td></td><td> </td> 12/12/2020 03:45:00 AM EDT [facility] RADEX SHOULDER 1 VIEW <td>XR SHOULDER 1 VW RIGHT</ td><td>STAT</td><td>12/11/2020 12:27 PM EDT</td><td></td><td> </td> 12/11/2020 12:27:51 PM EDT [facility] PROTHROMBIN TIME <td>PROTIME-INR</td><td>STAT </td><td>12/11/2020 7:52 AM EDT</td><td></td><td> </td> 12/11/2020 07:52:00 AM EDT [facility] URNLS DIP STICK/TABLET RGNT AUTO W/O MICROSCOPY <td>UR INALYSIS W/O MICRO</td><td>Routine</td><td>11/26/2020 1:40 PM EDT</td><td> Right shoulder pain, unspecified chronicity</td><td> </td> 11/26/2020 01:40:00 PM EDT Right shoulder pain, unspecified chronicity [facility] Right shoulder pain, unspecified chronic ity ECG ROUTINE ECG W/LEAST 12 LDS TRCG ONLY W/O I&R <td>E CG 12- LEAD</td><td>Routine</td><td>11/26/2020 1:20 PM EDT</td><td> Right shoulder pain, unspecified chronicity</td><td></td> 11/26/2020 01:20:50 PM EDT Right shoulder pain, unspecified chronicity [facility] Right shoulder pain, unspecified chronic ity THROMBOPLASTIN TIME PARTIAL PLASMA/WHOLE BLOOD <td>APTT</td><td>Routine</td><td>11/26/2020 1:15 PM EDT</td><td> Right shoulder pain, unspecified chronicity</td><td> </td> 11/26/2020 01:15:00 PM EDT Right shoulder pain, unspecified chronicity [facility] Right shoulder pain, unspecified chronic ity PROTHROMBIN TIME <td>PROTIME-INR</td><td>Rout ine</td><td>11/26/2020 1:15 PM EDT</td><td> Right shoulder pain, unspecified chronicity</td><td> </td> 11/26/2020 01:15:00 PM EDT Right shoulder pain, unspecified chronicity [facility] Right shoulder pain, unspecified chronic ity BLOOD COUNT COMPLETE AUTOMATED <td>CBC</td><td>Routine </td><td>11/26/2020 1:15 PM EDT</td><td> Right shoulder pain, unspecified chronicity</td><td> </td> 11/26/2020 01:15:00 PM EDT Right shoulder pain, unspecified chronicity [facility] Right shoulder pain, unspecified chronic ity BLOOD TYPING ABO <td>TYPE AND SCREEN</td><td> Routine</td><td>11/26/2020 1:15 PM EDT</td><td> Right shoulder pain, unspecified chronicity</td><td> </td> 11/26/2020 01:15:00 PM EDT Right shoulder pain, unspecified chronicity [facility] Right shoulder pain, unspecified chronic ity COMPREHENSIVE METABOLIC PANEL <td>COMPREHENSIVE METABO LIC PANEL</td><td>Routine</td><td>11/26/2020 1:15 PM EDT</td><td> Right shoulder pain, unspecified chronicity</td><td> </td> 11/26/2020 01:15:00 PM EDT Right shoulder pain, unspecified chronicity [facility] Right shoulder pain, unspecified chronic ity Results ID Date Data Source [id number] 01/29/2021 06:26:58 AM EDT [facility] PCName: Héctormatthew JosueDOB: 2Provider: Desmond BlancasDOCarol: 01/28/2021 Reason For VisitLeonard Joselo is here today for right shoulder and left shoulder. Héctor had his second Covid vaccine on 06/11/20. Héctor Josue is an established patient here for follow up. Global 6.5 weeks for the right shoulder, states it is improving and he is continuing physical therapy. He is also scheduled to get a synvisc one injection today. Surgery DOS: 12/11/2020. Surgery Description: right reverse TSA. The patient was notified that the office visit was recorded to enhance documentation accuracy. Patient is retired. History of Present IllnessCHIEF COMPLAINTFollow-up evaluation of right shoulder.HISTORY OF PRESENT ILLNESSThe patient is a 80-year-old male who is here for follow-up evaluation of right shoulder. The patient is 6-1/2 weeks status post right reverse total shoulder arthroplasty done on 12/12/2020. The patient has been doing very well. He has been attending PT. Left shoulder is known to have significant arthritis. The patient comes in today to get a Synvisc injection on his left shoulder. He has mkmn-[id number] arthritis in the left shoulder as well. He states the right shoulder feels great and he has minimal to no pain. AssessmentASSESSMENT1. Six weeks status post right reverse total shoulder arthroplasty, doing well.2. Left shoulder primary glenohumeral joint osteoarthritis, chronic with exacerbation. Plan Administered: Synvisc One 48 MG/6ML Intra-articular Solution Prefilled Syringe Rx By: Desmond Blancas;For: Osteoarthritis of left shoulder; Dose of 6 ML; Intra- articular; SHOLA = N; Administered: 01/28/2021 1:58:00 PM; Last Updated By: Rosalinda Oakes; 01/28/2021 1:58:49 PM Fredis and I discussed his bilateral shoulders. Right reverse total shoulder arthroplasty looks great. Left shoulder, we are going to do a Synvisc-One injection on today. He agrees and I will recheck him probably at the year kamaljit on the right for x-rays, AP, Y, and axillary views, sooner on the left depending on his response to the Synvisc- One.I advised the patient that steroid injections are frequently used to provide relief from musculoskeletal pain and to aid in the diagnosis of musculoskeletal problems. This injection offers a variety of benefits and various potential risks associated with the medication administered during the injection. I informed the patient that alternatives to this injection include no treatment, use of rehabilitation and exercise, use of a different medication (oral and injectable), and surgical intervention, when appropriate. I advised the patient that the risks associated with this injection include: an allergic reaction to the medication, pain at the injection site, possible infection of the injection site, facial flushing and skin changes, temporary increase in blood sugar, tendon, muscle or nerve injury, avascular necrosis, and that there may actually not be a beneficial effect at all. Having discussed benefits, alternatives, and potential risks to the injection, the patient elected to proceed with the procedure.PROCEDUREIndications: Left shoulder pain.Procedure: Left shoulder Synvisc-One injection.Description: Under sterile conditions, 2 mL 1% lidocaine and Synvisc-One was injected in the left shoulder without complication. The patient tolerated the procedure well. There was no injectable waste. Disclaimers Scribed by Viktoria on 01/28/2021 at 05:56 PM for Desmond Blancas Signatures Electronically signed by : Viktoria Baird MA; Jan 28 2021 5:56PM EST (Author) Electronically signed by : Desmond Blancas M.D.; Jan 29 2021 6:26AM EST Name Value Range Interpretation Code Description Data Tena rce(s) Supporting Document(s) ID Date Data Source [id number] 01/19/2021 09:50:00 AM EDT [facility] PROTHROMBIN TIME Name Value Range Interpretation Code Description Data Tena rce(s) Supporting Document(s) WARFARIN? YES [facility] l 29.2 INR in Platelet poor plasma by Coagulation assay 2.9 1.0 - 4.5 [facility] Reference ranges Warf mercedez (Coumadin) Therapy: 21.6 - 40.7 secs Normal (Non-warfarin Therapy): 10.7 - 15.2 secs New Protime Reference Range as of February 21, 2020 ID Date Data Source [id number] 01/06/2021 09:45:00 AM EDT [facility] PROTHROMBIN TIME Name Value Range Interpretation Code Description Data Tena rce(s) Supporting Document(s) WARFARIN? YES [facility] l 21.9 INR in Platelet poor plasma by Coagulation assay 2.0 1.0 - 4.5 [facility] Reference ranges Warf merecdez (Coumadin) Therapy: 21.6 - 40.7 secs Normal (Non-warfarin Therapy): 10.7 - 15.2 secs New Protime Reference Range as of February 21, 2020 ID Date Data Source [id number] 12/25/2020 08:12:34 AM EDT [facility] PCName: Héctor JosueDOB: 2Provider: Desmond BlancasDOS: 12/24/2020 Reason For VisitLeonaeaston Josue is here today for right shoulder. Héctor had his first Covid vaccine on 05/14/20. Héctor had his second Covid vaccine on 06/11/20. Héctor Josue is here for first post-op appointment. Patient states he is doing well. He has intermittent, burning 1/10 pain very rarely. He manages with Tylenol as needed. He is using a sling. He is doing home exercises. Surgery DOS: 12/11/20. Surgery Description: right reverse total shoulder arthroplasty. Patient is retired. History of Present IllnessCHIEF COMPLAINTFollow-up evaluation of right shoulder.HISTORY OF PRESENT ILLNESSThe patient is a 80-year-old male who is here for follow-up evaluation of right shoulder. He is in a global postoperative period. The patient is 13 days status post right reverse total shoulder arthroplasty. Temperature is 98.1 degrees. He is doing well. He has crjcape-bu-hdq level pain. The patient is here for a check.The patient states he wears the sling mainly at night or when he goes to take a nap or if his arm gets tired. He states last night his arm felt tired and could not get comfortable, so he put his arm in the sling, which really helped him. The patient reports he has had two other shoulder surgeries. The patient got a viscosupplementation in the right shoulder a year and a half a go. He was on Celebrex.The patient is also complaining of left shoulder pain. He is known to have arthritis there, but he cannot believe the right shoulder basically has no pain and he is very happy about that. AssessmentASSESSMENT1. Thirteen days status post right reverse total shoulder arthroplasty, doing great.2. Left shoulder chronic glenohumeral joint osteoarthritis with exacerbation. Plan X-Ray I Shoulder - 2 views (XRays were ordered, obtained and interpreted today in theoffice. Indication: pain/dysfunction.); Status:Complete; Done: 24Dec2020 Perform:SOS29; Due:[id number]; Last Updated By:Carroll Delgado; 12/24/2020 11:50:45 AM;Ordered; For:Right shoulder pain; Ordered By:Desmond Blancas;Laterality: : Right Physical Therapy (SOS) - General Treatment Treatment Status: Complete Done:[id number] Ordered;For: Right shoulder pain; Ordered By: Desmond Blancas Performed: Due: 07Jan2021; Last Updated By: Luz Waite; 12/24/2020 12:10:55 PMPT Protocol : Evaluate and treat as indicated, per protocol or as previously written.Duration: : Six WeeksPT Frequency : Once a weekLaterality and Body Part: : right shoulder Sodium Hyaluronate Injection (SOS) Referral Treatment Treatment Status: NeedInformation - Financial Authorization Requested for: [id number] Ordered;For: Shoulder pain; Ordered By: Desmond Blancas Performed: Due: 07Jan2021; Last Updated By: Luz Waite; 12/24/2020 12:12:58 PMSOS Ultrasound Guided Injection : NoLaterality: : LeftSodium Hyaluronate Injection : Synvisc-One PLANLeonard and I discussed his right shoulder. Primarily, we will get him started on physical therapy there. They have a family friend that is going to do it given the reverse protocol. The left shoulder has been hurting bad. He has done cortisone in the past that has not worked, so we are going to try viscosupplementation in the form of Synvisc- One in the left shoulder. I will try to get it approved and authorized and I will see him back for the injection. The patient agrees with this plan. Disclaimers Scribed by Milagro Chang on 12/24/2020 at 08:34 PM for Desmond Blancas Signatures Electronically signed by : Cole Paredes MA; Dec 24 2020 8:34PM EST (Author) Electronically signed by : Desmond Blancas M.D.; Dec 25 2020 8:12AM EST Name Value Range Interpretation Code Description Data Tena rce(s) Supporting Document(s) ID Date Data Source [id number] 12/22/2020 09:05:00 AM EDT [facility] PROTHROMBIN TIME Name Value Range Interpretation Code Description Data Tena rce(s) Supporting Document(s) WARFARIN? YES [facility] l 17.5 INR in Platelet poor plasma by Coagulation assay 1.5 1.0 - 4.5 [facility] Reference ranges Warf mercedez (Coumadin) Therapy: 21.6 - 40.7 secs Normal (Non-warfarin Therapy): 10.7 - 15.2 secs New Protime Reference Range as of February 21, 2020 ID Date Data Source [id number] 12/12/2020 01:05:41 PM EDT [facility] NT INFORMATIONPatient MRN Name Date of Age Gend*PT [id number] Héctor Josue 1940 80 years M SDCXPT Location Admission Date/Time Visit ID Attending [id number] 12/11/20 0633 --- --- EPI ID CSN Admitting Provider [id number] Desmond Blancas MD([id number]) [place] [address] OPERATIVE REPORT OPNAME: HÉCTOR JOSUE#: [id number] #: [id number] ADMISSION DATE: 12/11/2020OB: 1940 SEX: M PT TYPE: S OrthACCT #: [id number] CARE PHYSICIAN:DATE OF OPERATION: 12/11/2020REOPERATIVE DIAGNOSES:1. Right shoulder severe primary glenohumeral joint osteoarthritis.2. Right shoulder atraumatic complete rotator cuff tear.POSTOPERATIVE DIAGNOSES:1. Right shoulder severe primary glenohumeral joint osteoarthritis.2. Right shoulder atraumatic complete rotator cuff tear.PROCEDURE:Right reverse total shoulder arthroplasty.ATTENDING SURGEON:Colt Blancas MDASSISTANT:JOSIE MccordTHESIA:General.ANTIBIOTICS:IV Kefzol.IMPLANTS:Arthrex Revers total shoulder arthroplasty system.1. A 24 mm +4 modular baseplate.2. A 25 mm central screw.3. A 28 mm superior and inferior screw.4. A 39 x 24 glenosphere.5. A 39 +2 right suture cup.6. A size 12 Arthrex Revers humeral stem fixed at 135 degree angle with a39 +6 humeral insert.COMPLICATIONS:None.DISPOSITION:Stable to the recovery room.HISTORY:The patient is a 80-year-old gentleman with chronic problems of shoulder,known to have cuff tear, severe arthritis, failed nonsurgical measures,ultimately elected to proceed with surgery, understanding the risks.DESCRIPTION OF PROCEDURE:After informed consent was obtained, the patient brought to the operatingroom where general anesthesia was introduced without complication.Intravenous Kefzol was given within one hour of incision time and orderedto be stopped within 24 hours of surgery. The patient was then positionedinto the beach chair position where all bony prominences were well padded.The right shoulder was then prepped and draped in the usual sterile mannerand a timeout was performed. A deltopectoral approach was made to [facility]. The skin was sharply divided. The subcutane ous layer wasbluntly dissected. Cephalic vein was taken laterally with the deltoidthroughout the case. The coracoid conjoined tendon were then exposed. Themuscular edge of the conjoined tendon was split exposing the three sisters. The three sisters were then suture ligated. The biceps groove was thenopened, followed into the shoulder, the biceps was tenotomized and thentenodesed to the pectoralis major tendon. The subscapularis was intact, soit was tenotomized across the anatomic neck of the humerus. The axillarynerve was palpated and protected as I went. The supraspinatus andinfraspinatus appeared torn. I then exposed the proximal humerus. He hadlarge osteophytes anteriorly, inferiorly, and posteriorly, they wereremoved. I then did a humeral head osteotomy across the anatomic neck ofthe humerus. The humerus was then protected as I approached the glenoid.With the glenoid exposed, I removed all the soft tissue around theperiphery. He did have some retroversion of the glenoid. I then drilled acentral guidepin and reamed to ream more anterior bone than posterior bone. This was done without complication. I then placed a 24 mm baseplate +4fixed with a 25 mm central screw and a 28 mm superior and inferior screw,achieving excellent fixation. A 39 x 24 glenosphere was then placed onthat achieving excellent fixation. I then turned my attention back to thehumerus.With the humerus exposed, I broached to be a size 12 mm humeral stem. Ithen reamed proximally. I then placed a final component, 12 mm fixed at135 degree angle proximal stem. This achieved excellent fixation. I thentrialled a +3 and then a +6 insert. I found the +6 to have appropriatetension on the deltoid with full motion, no impingement and stabilityanteriorly and posteriorly to load and shift. The trial insert was thenremoved. The final component insert was then placed, achieving excellentfixation. The shoulder was then re-reduced, taken through a full motion,finding no impingement or instability. The wound was then copiouslyirrigated. Axillary nerve was palpated and intact at the end of the case.The subscapularis was closed with #2 FiberWire stitch. The deltopectoralinterval was closed with an 0 Vicryl stitch and the dermis was closed with2-[address] were used to close the skin. He was placed eren sterile bandage, extubated and brought to the recovery room in stablecondition.DENNYS Mccord, assisted with all critical portions of the case as therewas no available resident help on this day at [facility] BERYL Moreno/ISIS Job #: [id number] DOC #: [id number] Name Value Range Interpretation Code Description Data Tena rce(s) Supporting Document(s) ID Date Data Source [id number] 12/12/2020 04:58:25 AM EDT [facility] Name Value Range Interpretation Code Description Data Tena rce(s) Supporting Document(s) HCT 34.4 % (41.0-53.0) L Lab [facility] PERFORMED AT [address] [place] [address] [place] [id number] ID Date Data Source [id number] 12/11/2020 12:35:41 PM EDT [address] [address]Vlmykxs Name: HÉCTOR JOSUEB: 1940ex: MOrdering Provider: KAMALJIT Smith Prov: KAMALJIT Edwards Provider: Procedure Performed: / XR SHOULDER 1 VW RIGHTExam Date: 12/11/2020 12:27MRN: [id number] Number: [id number] Class: InpatientAccount #: [id number] for Exam: prosthesis placement, shoulderr reductionTechnique: Single AP view obtained.Comparison: NoneFindings: Status post right shoulder arthroplasty with good alignment. Surgical drain is present. Subcutaneous gas consistent gas introduced during surgery is present. Visualized thoracic structures are grossly unremarkableIMPRESSION: Good alignment.Report electronically signed by: JASPAL ALEXANDER On 12/11/2020 12:35 PMWorkstation ID: [id number] Name Value Range Interpretation Code Description Data Tena rce(s) Supporting Document(s) ID Date Data Source [id number] 12/11/2020 10:19:36 AM EDT [facility] NT INFORMATIONPatient MRN Name Date of Age Gend*PT [id number] Héctor Josue Vince 1940 80 years M SDCXPT Location Admission Date/Time Visit ID Attending Provider --- --- --- --- EPI ID CSN Admitting Provider [id number] ---AirwayPatient location during procedure: ORUrgency: electiveDifficult airway: noAdvanced airway equipment used: noStaffingPerformed by: Juanito Colon CRNAAnesthesiologist: Mauricio Tijerina, DOIndications and Patient ConditionIndications for airway management: anesthesia and airway protectionPreoxygenated: yesPatient position: sniffingIn-line stabilization: noMask ventilation: 1 - vent by maskFinal Airway/ApproachesFinal airway type: ETTNumber of attempts at final approach: 1Number of other approaches attempted: 0Final Airway DetailsFinal ETT airway: ETT - singleCuffed: yesTechnique used for successful ETT placement: direct laryngoscopyCricoid pressure: noRSI: noInsertion site: oralBlade type/size: MAC 3.5ETT size: 7.5 mmMeasured from: li psETT to lips: 21 cmPlacement verified by: chest auscultation and + [id number]: CTA and equal breath sounds bilateralGrade view: grade IIb - view of arytenoids or posterior of glottis only Name Value Range Interpretation Code Description Data Tena rce(s) Supporting Document(s) ID Date Data Source [id number] 12/11/2020 09:39:13 AM EDT [facility] NT INFORMATIONPatient MRN Name Date of Age Gend*PT [id number] Héctor Josue 1940 80 years M SDCXPT Location Admission Date/Time Visit ID Attending Provider --- --- --- --- EPI ID CSN Admitting Provider [id number] ---Peripheral BlockPatient location during procedure: pre-opReason for block: at surgeon's request, post-op pain management and painmanagementStaffingPerformed: anesthesiologistAnesthesiologist: MORENA Nelsonreanesthetic ChecklistCompleted: patient identified, IV checked, site marked, risks and benefitsdiscussed, surgical consent, monitors and equipment checked, pre-op evaluationand timeout performedPeripheral BlockPatient position: supinePrep: ChloraPrepPatient monitoring: continuous pulse ox, lunchroom monitor and heart rateBlock type: interscaleneLaterality: rightInjection technique: single- shotGuidance: ultrasound guidedLocal infiltration: ropivicaineInfiltration strength: 0.5 %Dose: 20 mLAdjuvants: dexamethasoneDose: 4 mgNeedleNeedle type: Regional needleNeedle gauge: 22 GNeedle length: 5 cmNeedle localization: ultrasound guidanceAssessmentInjection assessment: negative aspiration for heme Q 5 ml, no paresthesia oninjection, incremental injection and local visualized surrounding nerve onultrasoundParesthesia pain: none Name Value Range Interpretation Code Description Data Tena rce(s) Supporting Document(s) ID Date Data Source [id number] 12/11/2020 08:23:22 AM EDT [facility] NT INFORMATIONPatient MRN Name Date of Age Gend*PT [id number] Héctor Josue 1940 80 years M SDCXPT Location Admission Date/Time Visit ID Attending ProviderAR[facility]ITALCAITLIN MURILLO 12/11/20 0633 --- L Josh Blancas MD([id number]) EPI ID CSN Admitting Provider [id number] Desmond Blancas MD([id number])Attending Admission Note:Please refer to the H&P Completed within 30 days prior to admission for details.Update to History and Physical:I have reviewed the patients H&P, there are no significant changes in thepatients history or physical exam.Signature: Desmond Josh Blancas, MDDate: December 11, 2020Time: 8:23 AM Name Value Range Interpretation Code Description Data Tena rce(s) Supporting Document(s) ID Date Data Source [id number] 12/11/2020 09:33:59 AM EDT [facility] Name Value Range Interpretation Code Description Data Tena rce(s) Supporting Document(s) PT 11.4 s (9.2-11.9) Lab [facility] PERFORMED AT [address] [place] [address] [place] [address] INR 1.09 Lab [facility] SUGGESTED THERAPEUTIC RANGES USING INR F ORSTABILIZED ANTICOAGULATED PATIENTS:STANDARD DOSE THERAPY INR 2.0-3.0 DVT, PE, PREVENT DVT OR EMBOLISMHIGH DOSE THERAPY INR 2.5-3.5 PREVENT EMBOLISM FROM MECHANICAL HEART VALVE ID Date Data Source [id number] 12/08/2020 09:00:00 AM EDT [facility] Name Value Range Interpretation Code Description Data Tena rce(s) Supporting Document(s) SARS coronavirus 2 RNA [Presence] in Res piratory specimen by MICHAEL with probe detection NOT DETECTED [facility] This lab was reported by [facility]. ID Date Data Source [id number] 12/09/2020 07:28:51 AM EDT [facility] Name Value Range Interpretation Code Description Data Tena rce(s) Supporting Document(s) SPECIMEN DESCRIPTION [facility] COVID 19 RESULT (NDET) [facility] NEGATIVE COVID-19 RESULTS DONOT PRECLUDE COVID-2019 INFECTION ANDSHOULD NOT BE USED THE SOLE BASISFOR PATIENT MANAGEMENT DECISIONS. COMMENT Lab [facility] THE [place] FDA HAS MADE THIS TEST AVAILABL EUNDER AN EMERGENCY USE AUTHORIZATION(EUA) FOR THE DETECTION AND/OR DIAGNOSISOF THE VIRUS THAT CAUSES COVID-19.THIS ASSAY AMPLIFIES AND DETECTS TARGETDNA USING PROJECT MANAGER INTERIOR DESIGN- MEDIATEDAMPLIFICATIONTESTING PERFORMED ON [employer] FIRST TEST [facility] EMPLOYED IN HLTHCARE Lab [facility] SYMPTOMATIC Lab [facility] DATE OF SYMPT ONSET Lab [facility] HOSPITALIZED [facility] ICU [facility] CONGREGATE CARE SET Lab [facility] of [facility] ID Date Data Source [id number] 12/08/2020 03:14:28 PM EDT [facility], PCName: Héctor JosueDOB: 2Provider: Desmond BlancasDOS: 12/03/2020 Reason For Visit Héctor Josue is here for a history and physical. Surgery Description: R shoulder TSA. Expected DOS: 12/11/20. Patient is retired. History of Present IllnessCHIEF COMPLAINTFollow- up evaluation of chronic right shoulder problem with exacerbation.HISTORY OF PRESENT ILLNESSThe patient is a 80-year-old male who is here for follow-up evaluation of chronic right shoulder problem with exacerbation. The patient is accompanied by an adult female who helped with taking history. The patient is here for right shoulder replacement conversation. The patient describes the pain as kind of a constant achy pain in his right shoulder and rates the pain as 2/10, worse with motion. The patient takes Coumadin for atrial fibrillation. He bounces back between 3 mg and 6 mg throughout the day. He has not been able to take anti-inflammatory medications. He is known to have significant arthritis in this right shoulder.He denies any previous stent placement. The patient denies any history of blood clots. He states that he takes hydrocodone for the right shoulder pain at night. He states that he has done well with physical therapy for his hips in the past. The patient is an avid golfer and because of his right shoulder pain, he is having difficulty playing golf, hence he has quit golfing about 3 weeks ago. He reports that he has lost a lot of muscle tone in his right shoulder. Results/Data OtherCT scan of the right shoulder previously obtained on 10/07/2020 was reviewed today and reveals end-stage arthritis with some retroversion across the glenohumeral joint, evidence of anchor in the humeral head. AssessmentASSESSMENT1. 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 Right shoulder atraumatic incomplete rotator cuff tear, chronic. Plan Start: Hibiclens 4 % External Liquid; USE DIRECTED Rx By: Desmond Blancas; Dispense: 0 Days ; #:1 X 118 ML Bottle; Refill: 0;For: Health Maintenance; SHOLA = N; Verified Transmission to [facility]; Last Updated By: Fredis Romero; 12/03/2020 3:52:55 PM Start: HYDROcodone-Acetaminophen 5-325 MG Oral Tablet; TAKE 1 TABLET EVERY 4TO 6 HOURS NEEDED FOR PAIN. MDD:6 Rx By: Desmond Blancas; Dispense: 0 Days ; #:20 Tablet; Refill: 0;For: Right shoulder pain; SHOLA = N; Verified Transmission to [facility]; Msg to Pharmacy: Reference #: [id number]; Last Updated By: Fredis Romero; 12/04/2020 10:04:02 AM Fredis and I discussed his right shoulder at length. We are going to perform a reverse total right shoulder arthroplasty. The patient understands the risks of a reverse right shoulder arthroplasty include, but are not limited to, infection, bleeding, nerve damage, artery damage, stiffness, continued pain, dislocation, fracture, hardware complication, hardware loosening, blood clots, anesthesia complications, , need for further surgery. The patient signed the informed consent. I answered all of the patient's questions. He is on Coumadin 3 mg Monday, Monday, Monday; 6 mg Monday, Monday, , and Monday. He is going to stop that. No bridging needed, get him through surgery, and get back on the Coumadin the night of surgery. We will see him soon for the surgery. The patient agrees. Scribed by Paulo Altman on 12/04/2020 at 02:36 PM for Desmond Blancas Signatures Electronically signed by : Paulo Altman MA; Dec 04 2020 2:36PM EST (Author) Electronically signed by : Desmond Blancas M.D.; Dec 08 2020 3:14PM EST Name Value Range Interpretation Code Description Data Tena tang(s) Supporting Document(s) ID Date Data Source [id number] 11/27/2020 02:59:47 PM EDT [facility] SPECIMEN DESCRIPTION MIDSTREAM UR INE,CLEAN CATCHCULTURE RESULTS NO GROWTHREPORT STATUS FINAL 11/27/2020 Name Value Range Interpretation Code Description Data Tena rce(s) Supporting Document(s) ID Date Data Source [id number] 11/26/2020 09:22:12 PM EDT [facility] Name Value Range Interpretation Code Description Data Tena rce(s) Supporting Document(s) COLOR [facility] APPEARANCE [facility] SPEC GRAV URINE 1.008 (1.003-1.030) [facility] PH URINE 6.0 (5.0-7.5) [facility] LEUK ESTERASE (NEG) [facility] NITRITE URINE (NEG) [facility] PROTEIN URINE (NEG) [facility] GLUCOSE URINE (NEG) [facility] KETONE URINE (NEG) [facility] UROBILINOGEN 0.2 mg/dL (0-1.0) [facility] BILIRUBIN URINE (NEG) [facility] BLOOD/HGB URINE (NEG) [facility] ID Date Data Source [id number] 11/26/2020 01:32:30 PM EDT [facility] Name Value Range Interpretation Code Description Data Tena rce(s) Supporting Document(s) EKG [facility] [id number] [file] [id number]== ID Date Data Source [id number] 11/26/2020 01:32:29 PM EDT [facility] NT INFORMATIONPatient MRN Name Date of Age Gend*PT [id number] Héctor Josue 1940 80 years M OPPT Location Admission Date/Time Visit ID Attending Provider --- --- --- Desmond Blancas MD([id number]) EPI ID CSN Admitting Provider [id number] ---OUTPATIENT / OBSERVATIONAL SURGICAL OR INVASIVE PROCEDUREName: Héctor Josue : 1940 Sex: male Care Provider: Kam Garza II, MDAttending Physician: Dr. Blancas.HISTORY OF PRESENT ILLNESS: 80 years old white male reports history of tornrotator cuff in 1994. He had right rotator cuff surgery in 2009. He has hadprogressive pain over the last 3 to 4 years. Additionally he reports numbnessand tingling of the shoulder arm and hand. Symptoms are aggravated with liftingover his head or lifting weighted objects. He does report some measure ofrelief with heat application and ice application. He has undergone cortisoneinjections in the past. Patient met with Dr. Blancas, options were discussed, andhe has now elected to undergo surgical intervention.PAST MEDICAL HISTORY:Past Medical History:Diagnosis Date Atrial fibrillation BCC (basal cell carcinoma of skin) Hyperlipidemia Hypertension Followed by Dr Martínez and Dr Gan Mitral regurgitation Osteoarthritis Pain in right shoulder Tachycardia-bradycardia syndromePAST SURGICAL HISTORY:Past Surgical History:Procedure Laterality Date CARDIAC CATHETERIZATION 1994 CARDIAC ELECTROPHYSIOLOGY MAPPING AND ABLATION x2 CARDIAC PACEMAKER PLACEMENT CARDIOVERSION Multiple CARPAL TUNNEL RELEASE Right COLONOSCOPY DISTAL CLAVICLE EXCISION Left GANGLION CYST EXCISION Left INGUINAL HERNIA REPAIR Left KNEE ARTHROSCOPY Bilateral ROTATOR CUFF REPAIR Right TONSILLECTOMYALLERGIES: No Known Drug AllergiesMEDICATIONS:Prior to Admission medicationsMedication Sig Start Date End Date Taking? Authorizing Provideracetaminophen (TYLENOL) 500 MG tablet Take 1-2 tablets by mouth daily as neededfor pain Historical Provider, Teremoxicillin (AMOXIL) 500 MG capsule Take 2,000 mg by mouth once Before dentalprocedures Historical Provider, Terescorbic acid ([employer] Vitamin C) 500 MG tablet Take 500 mg by mouth dailyHistorical Provider, MDatenolol (TENORMIN) 100 MG tablet Take 100 mg by mouth daily HistoricalProvider, MDcelecoxib (CeleBREX) 200 MG capsule Take 200 mg by mouth daily HistoricalProvider, MDDaily Alok (THERAGRAN) per tablet Take 1 tablet by mouth daily HistoricalProvider, MDdigoxin (LANOXIN) 125 MCG tablet Take 125 mcg by mouth daily HistoricalProvider, MDfluticasone (FLONASE) 50 MCG/ACT nasal spray 1 spray into each nostril daily asneeded for rhinitis or allergies Historical Provider, GLUCOSAMINE-CHONDROITIN PO Take 1 tablet by mouth daily Historical Provider,lisinopril (PRINIVIL,ZESTRIL) 10 MG tablet Take 10 mg by mouth dailyHistorical Provider, MDMagnesium 250 MG TABS Take 250 mg by mouth every other day HistoricalProvider, MDPolyethyl Glycol-Propyl Glycol (SYSTANE OP) Administer 1 drop to both eyes dailyas needed (eye irritation) Historical Provider, Karelyfarin (COUMADIN) 6 MG tablet Take 3 mg by mouth 3 (three) times a week OnSund, Monday and Monday Historical Provider, Karelyfarin (COUMADIN) 6 MG tablet Take 6 mg by mouth 4 (four) times a week Monday,Monday, and Monday Historical Provider, DOLORESocial HistoryTobacco Use Smoking status: Never Smoker Smokeless tobacco: Never UsedVaping Use Vaping Use: Never usedSubstance Use Topics Alcohol use: Never Drug use: NeverFamily HistoryProblem Relation Age of Onset Malig Hyperthermia Neg HxREVIEW OF SYSTEMS:Respiratory: Denies any shortness of breath, cough, yellow sputum production orwheezing.Cardiovascular: Denies any chest pain, pressure or tightness. Denies anyparoxysmal nocturnal dyspnea or orthopnea.GI: Denies nausea, vomiting, diarrhea, constipation or melena.M usculoskeletal: Reports pain to the right shoulderNeurologic: Reports right upper extremity numbness, tingling. Denies anytremors or syncope.Vascular: Reports bilateral ankle edema. Denies claudication.PHYSICAL EXAM:GENERAL: He is a 80 years old, pleasant white male, in no acute distress at timeof examination. Vitals on arrival to the office are BP 165/90 (BP Location:Right upper arm, Patient Position: Sitting) | Pulse 70 | Ht 1.778 m (5' 10")| Wt 96.2 kg (212 lb) | SpO2 99% | BMI 30.42 kg/m Body mass index is 30.42kg/m ..Skin is pink, warm, and dry.NECK: He has a grade 1 airway. Neck is supple, midline, without cervicaladenopathy. No thyromegaly. No carotid bruits.MENTAL / NEUROLOGICAL STATUS: [id number]: Clear to auscultation. No wheezes, rhonchi or crackles.HEART: Rate rhythm regular. S1, S2. No murmur, rub or gallop.ABDOMEN: Bowel sounds positive times four. Soft, non tender. No reboundtenderness. No hepatosplenomegaly. Negative CVAT.EXTREMITIES: Pulses are symmetrical. +1 edema.OPERATIVE SITE: Denies rash or lesion.Anesthesia complications: DeniesHA Frailty Scale :: 3/10 Managing Well (medical problems are well controlled,but are not regularly active beyond routine walking).Stop Bang Questionnaire - Total Score:STOP-Bang Total Score: 4ASSESSMENT: Primary Diagnosis/Indication: Pain in right shoulder.PLAN: Procedure: Right arthroplasty shoulder total reverse right. To be seen by stone cutter Dr Martínez on 12/01/2020 for perioperative evaluation.Will need copy of any testing and note.11/26/2020 1:32 PMPanchito Mujica document or parts of this document, were dictated using Collabera software. A reasonable attempt at proofreading has beenmade to minimize errors. Please call with any questions or corrections.* Name Value Range Interpretation Code Description Data Tena rce(s) Supporting Document(s) ID Date Data Source [id number] 11/26/2020 07:05:05 PM EDT [facility] Name Value Range Interpretation Code Description Data Tena rce(s) Supporting Document(s) APTT 35.3 s (22.0-34.3) H Lab [facility] ID Date Data Source [id number] 11/26/2020 07:05:05 PM EDT [facility] Name Value Range Interpretation Code Description Data Tena rce(s) Supporting Document(s) PT 19.3 s (9.2-11.9) H [facility] INR 1.93 [facility] SUGGESTED THERAPEUTIC RANGES USING INR F ORSTABILIZED ANTICOAGULATED PATIENTS:STANDARD DOSE THERAPY INR 2.0-3.0 DVT, PE, PREVENT DVT OR EMBOLISMHIGH DOSE THERAPY INR 2.5-3.5 PREVENT EMBOLISM FROM MECHANICAL HEART VALVE ID Date Data Source [id number] 11/26/2020 07:03:45 PM EDT [facility] Name Value Range Interpretation Code Description Data Tena rce(s) Supporting Document(s) SODIUM 141 mmol/L (136-145) [facility] POTASSIUM 4.4 mmol/L (3.6-5.2) [facility] CHLORIDE 105 mmol/L (100-108) [facility] CO2 27 mmol/L (22-31) [facility] ANION GAP 9 mmol/L (7-16) [facility] UREA NITROGEN 11 mg/dL (7-24) [facility] CREATININE 0.82 mg/dL (0.80-1.30) [facility] BUN/CREAT RATIO 13.4 RATIO (10.0-20.0) [facility] GLUCOSE 78 mg/dL (70-99) [facility] CALCIUM 8.6 mg/dL (8.4-10.2) [facility] TOTAL PROTEIN 7.9 g/dL (6.4-8.2) [facility] ALBUMIN 4.2 g/dL (3.2-4.5) [facility] GLOBULIN 3.7 g/dL (2.7-4.3) [facility] ALB/GLOB RATIO 1.1 RATIO [facility] ALKALINE PHOSPHATASE 75 U/L (45-117) [facility] BILIRUBIN,TOTAL 0.7 mg/dL (0.0-1.0) [facility] PLEASE NOTE:Total bilirubin results may be falselyelevated in patients taking Eltrombopag. AST (SGOT) 46 U/L (11-39) H [facility] ALT (SGPT) 36 U/L (12-78) [facility] GFR >60 ml/min/1.73m2 (>59) [facility] GFR ( AMER) >60 ml/min/1.73m2 (>59) [facility] GFR INTERPRETATION [facility] --NORMAL KIDNEY FUNCTION OR MILD DISEASE - GFR >OR= 60CHRONIC KIDNEY DISEASE - GFR 15 - 59RENAL FAILURE - GFR <15 Est. GFR calculation based on the MDRDstudy equation, which assumes a steadystate for creatinine. Est. GFR should notbe used for medication dosing. ID Date Data Source [id number] 11/26/2020 06:57:33 PM EDT [facility] SPEC EXP DATE 1PATI ENT ABO/Rh A POSITIVEANTIBODY SCREEN NEGATIVETESTING SITE PERFORMED AT [address] [place] [address] Name Value Range Interpretation Code Description Data Tena rce(s) Supporting Document(s) TYPE AND SCREEN [facility] ID Date Data Source [id number] 11/26/2020 06:30:53 PM EDT [facility] Name Value Range Interpretation Code Description Data Tena rce(s) Supporting Document(s) WBC 6.8 10*3/uL (4.1-11.0) [facility] RBC 4.38 10*6/uL (4.60-6.10) L [facility] HGB 13.6 g/dL (13.5-18.0) [facility] HCT 41.5 % (41.0-53.0) [facility] MCV 94.8 fL (80.0-95.0) [facility] MCH 31.1 pg (27.0-32.0) [facility] MCHC 32.8 g/dL (32.0-36.0) [facility] RDW 13.5 % (10.5-14.5) [facility] PLT 180 10*3/uL (150-450) [facility] MPV 10.3 fL (7.1-10.7) [facility] ID Date Data Source [id number] 11/27/2020 10:35:31 AM EDT [facility] Name Value Range Interpretation Code Description Data Tena rce(s) Supporting Document(s) SPECIMEN DESCRIPTION [facility] STAPH SCREEN RESULTS (ONEGSA) [facility] COMMENT [facility] GENE TO DETECT STAPH AUREUS. (2) RT-P CR WAS PERFORMED FOR THE mecA AND [employer] GENES TO DETECT METHICILLIN RESISTANCE IN STAPH AUREUS. ID Date Data Source [id number] 11/25/2020 10:15:00 AM EDT [facility] PROTHROMBIN TIME Name Value Range Interpretation Code Description Data Tena rce(s) Supporting Document(s) [facility] in Platelet poor plasma by Coagulation assay 2.0 1.0 - 4.5 [facility] Reference ranges Warf mercedez (Coumadin) Therapy: 21.6 - 40.7 secs Normal (Non-warfarin Therapy): 10.7 - 15.2 secs New Protime Reference Range as of February 21, 2020 ID Date Data Source [id number] 10/28/2020 08:53:00 AM EDT [facility] PROTHROMBIN TIME Name Value Range Interpretation Code Description Data Tena rce(s) Supporting Document(s) WARFARIN? YES [facility] 23.1 INR in Platelet poor plasma by Coagulation assay 2.1 1.0 - 4.5 [facility] Reference ranges Warf mercedez (Coumadin) Therapy: 21.6 - 40.7 secs Normal (Non-warfarin Therapy): 10.7 - 15.2 secs New Protime Reference Range as of February 21, 2020 ID Date Data Source [id number] 09/30/2020 08:40:00 AM EDT [facility] PROTHROMBIN TIME Name Value Range Interpretation Code Description Data Tena rce(s) Supporting Document(s) WARFARIN? YES [facility] 27.4 INR in Platelet poor plasma by Coagulation assay 2.7 1.0 - 4.5 [facility] Reference ranges Warf mercedez (Coumadin) Therapy: 21.6 - 40.7 secs Normal (Non-warfarin Therapy): 10.7 - 15.2 secs New Protime Reference Range as of February 21, 2020 ID Date Data Source [id number] 09/09/2020 11:25:00 AM EDT [facility] [address] [place] [address] PHONE: [phone] FAX: [phone] Name .................. : JOSUE HÉCTOR Acct Number.................. : [id number] ROOM. ................. : MR Number ................... : [id number] Stay type ............. : O/P Discharge Date......... ... : 09/07/20 Admit Date ......... : 09/07/20 Admit Phys .................... : YONNY MORENO Date of ....... : 1940 Family Phys ................... : NON STAFF Phone .................. : [phone] Age ................................ : 79 Film# .................. .:[id number] Sex ................................. : M Unsigned transcriptions are preliminary reports and do not represent a medical or legal document INJECTION FOR SHOULDER ARTHRO [id number] COMPLETE:09/07/20 18:31 D [id number] Reason for Exam: R SHOULDER PAIN SHOULDER 1 VIEW [place] [id number] COMPLETE:09/07/20 18:31 JLD [id number] Reason for Exam: R SHOULDER PAIN RIGHT SHOULDER CT ARTHROGRAM: INDICATION: Pain. FINDINGS: The steel sampler film shows degenerative changes and a surgical anchor. PROCEDURE: The benefits and risks of the examination were discussed with the patient. The patient has given informed consent for the procedure. A time out was performed confirming the right shoulder is the proper shoulder for today's examination. The skin surface was marked using fluoroscopic guidance. The skin was prepped and dressed in normal sterile fashion. Superficial and deep Lidocaine administration was performed with a 25-gauge needle. A 22- gauge spinal needle was then placed and advanced under fluoroscopic guidance. The needle was passed into the joint space at which time iodinated contrast was administered to confirm proper placement. Approximately 5 cc of iodinated contrast was administered. Once the proper placement was confirmed, approximately 8 cc of iodinated contrast. The needle was then removed. The skin was cleansed and bandaged. No complications were experienced during the procedure. Fluoroscopy time was 2 seconds and 3 images were obtained. Page 1 of 2 [place] [address] PHONE: [phone] FAX: [phone] Name .................. : JOSELO GARCÍA Acct Number.................. : [id number] ROOM. ................. : MR Number ................... : [id number] Stay type ............. : O/P Discharge Date......... ... : 09/07/20 Admit Date ......... : 09/07/20 Admit Phys .................... : YONNY MORENO Date of ....... : 1940 Family Phys ................... : NON STAFF Phone .................. : [phone] Age ................................ : 79 Film# .................. .:[id number] Sex ................................. : M Unsigned transcriptions are preliminary reports and do not represent a medical or legal document INJECTION FOR SHOULDER ARTHRO [id number] COMPLETE:09/07/20 18:31 J[place] [id number] Reason for Exam: R SHOULDER PAIN SHOULDER 1 VIEW RT [id number] COMPLETE:09/07/20 18:31 JLD [id number] Reason for Exam: R SHOULDER PAIN Examination dictated by DENNYS Espinosa. Examination was reviewed with Dyllan Gilman MD, radiologist at the time of this dictation. Electronically Reviewed and Signed By Dyllan Gilman M.D. , 09/09/20 11:25, [facility] Transcribe Initials: PHANI , Transcribe Date: 09/08/20 05:10, Dictation Date: Copy for: YONNY MORENO Copy for: 710 MED REC Page 2 of 2 Name Value Range Interpretation Code Description Data Tena rce(s) Supporting Document(s) ID Date Data Source [id number] 09/09/2020 11:25:00 AM EDT [facility] [address] [place] [address] PHONE: [phone] FAX: [phone] Name .................. : JOSELO GARCÍA Acct Number.................. : [id number] ROOM. ................. : MR Number ................... : [id number] Stay type ............. : O/P Discharge Date......... ... : 09/07/20 Admit Date ......... : 09/07/20 Admit Phys .................... : SMART JOSH Date of ....... : 1940 Family Phys ................... : NON STAFF Phone .................. : [phone] Age ................................ : 79 Film# .................. .:[id number] Sex ................................. : M Unsigned transcriptions are preliminary reports and do not represent a medical or legal document INJECTION FOR SHOULDER ARTHRO [id number] COMPLETE:09/07/20 18:31 [facility] [address] Reason for Exam: R SHOULDER PAIN SHOULDER 1 VIEW RT [id number] COMPLETE:09/07/20 18:31 JLD [id number] Reason for Exam: R SHOULDER PAIN RIGHT SHOULDER CT ARTHROGRAM: INDICATION: Pain. FINDINGS: The steel sampler film shows degenerative changes and a surgical anchor. PROCEDURE: The benefits and risks of the examination were discussed with the patient. The patient has given informed consent for the procedure. A time out was performed confirming the right shoulder is the proper shoulder for today's examination. The skin surface was marked using fluoroscopic guidance. The skin was prepped and dressed in normal sterile fashion. Superficial and deep Lidocaine administration was performed with a 25-gauge needle. A 22- gauge spinal needle was then placed and advanced under fluoroscopic guidance. The needle was passed into the joint space at which time iodinated contrast was administered to confirm proper placement. Approximately 5 cc of iodinated contrast was administered. Once the proper placement was confirmed, approximately 8 cc of iodinated contrast. The needle was then removed. The skin was cleansed and bandaged. No complications were experienced during the procedure. Fluoroscopy time was 2 seconds and 3 images were obtained. Page 1 of 2 [facility] [address] [place] [address] PHONE: [phone] FAX: [phone] Name .................. : JOSELO GARCÍA Acct Number.................. : [id number] ROOM. ................. : MR Number ................... : [id number] Stay type ............. : O/P Discharge Date......... ... : 09/07/20 Admit Date ......... : 09/07/20 Admit Phys .................... : YONNY MORENO Date of ....... : 1940 Family Phys ................... : NON STAFF Phone .................. : [phone] Age ................................ : 79 Film# .................. .:[id number] Sex ................................. : M Unsigned transcriptions are preliminary reports and do not represent a medical or legal document INJECTION FOR SHOULDER ARTHRO [id number] COMPLETE:09/07/20 18:31 J[place] [id number] Reason for Exam: R SHOULDER PAIN SHOULDER 1 VIEW RT [id number] COMPLETE:09/07/20 18:31 J[place] [id number] Reason for Exam: R SHOULDER PAIN Examination dictated by DENNYS Espinosa. Examination was reviewed with Dyllan Gilman MD, radiologist at the time of this dictation. Electronically Reviewed and Signed By Dyllan Gilman M.D. , 09/09/20 11:25, [facility] Transcribe Initials: DZ , Transcribe Date: 09/08/20 05:10, Dictation Date: Copy for: YONNY MORENO Copy for: 710 MED REC Page 2 of 2 Name Value Range Interpretation Code Description Data Tena rce(s) Supporting Document(s) ID Date Data Source [id number] 09/08/2020 02:43:00 [place] [address] PHONE: [phone] FAX: [phone] Name .................. : JOSELO GARCÍA Acct Number.................. : [id number] ROOM. ................. : MR Number ................... : [id number] Stay type ............. : O/P Discharge Date......... ... : 09/07/20 Admit Date ......... : 09/07/20 Admit Phys .................... : YONNY MORENO Date of ....... : 1940 Family Phys ................... : NON STAFF Phone .................. : [phone] Age ................................ : 79 Film# .................. .:[id number] Sex ................................. : M Unsigned transcriptions are preliminary reports and do not represent a medical or legal document CT UPPER EXT RT W CONT [id number] COMPLETE:09/07/20 19:[address] [facility] [address] Reason for Exam: R SHOULDER PAIN CT OF THE RIGHT UPPER EXTREMITY WITH INTRA-ARTICULAR CONTRAST: INDICATION: Right shoulder pain. FINDINGS: There are mild degenerative changes of the acromioclavicular joint. There is marked loss of joint space in the glenohumeral joint with post traumatic and degenerative changes of the humeral head. There is a large inferior osteophyte of the articular aspect of the right humeral head. A full thickness tear is noted at the supraspinatus. There is a partial thickness tear of the infraspinatus as well. The labrum appears intact but chronically degenerated. The biceps tendon appears intact. IMPRESSION: Full thickness supraspinatus tear and partial thickness infraspinatus tear. Chronic degenerative changes of the labrum. Postoperative/traumatic/degenerative changes noted of the glenohumeral joint especially of the humeral head. While performing the above CT examination, radiation dose reduction was accomplished utilizing automated exposure control, adjusting of the mA and kV based on the patient's body size and/or the use of imperative reconstructive techniques. CT dose: 364.0 mGycm Contrast agent in mL: 75 Isovue 370 Method of administration: Intravenous Page 1 of 2 [facility] [address] [place] [address] PHONE: [phone] FAX: [phone] Name .................. : JOSELO GARCÍA Acct Number.................. : [id number] ROOM. ................. : MR Number ................... : [id number] Stay type ............. : O/P Discharge Date......... ... : 09/07/20 Admit Date ......... : 09/07/20 Admit Phys .................... : YONNY MORENO Date of ....... : 1940 Family Phys ................... : NON STAFF Phone .................. : [phone] Age ................................ : 79 Film# .................. .:[id number] Sex ................................. : M Unsigned transcriptions are preliminary reports and do not represent a medical or legal document CT UPPER EXT RT W CONT [id number] COMPLETE:09/07/20 19:[address] [facility] [address] Reason for Exam: R SHOULDER PAIN Electronically Reviewed and Signed By Dyllan Gilman M.D. , 09/08/20 14:43, [facility] Transcribe Initials: PHANI , Transcribe Date: 09/08/20 00:19, Dictation Date: Copy for: YONNY MORENO Copy for: 710 MED REC Page 2 of 2 Name Value Range Interpretation Code Description Data Tena rce(s) Supporting Document(s) ID Date Data Source [id number] 09/03/2020 09:04:00 AM EDT [facility] PROTHROMBIN TIME Name Value Range Interpretation Code Description Data Tena rce(s) Supporting Document(s) WARFARIN? YES [facility] 25.1 INR in Platelet poor plasma by Coagulation assay 2.4 1.0 - 4.5 [facility] Reference ranges Warf mercedez (Coumadin) Therapy: 21.6 - 40.7 secs Normal (Non-warfarin Therapy): 10.7 - 15.2 secs New Protime Reference Range as of February 21, 2020 ID Date Data Source [id number] 10/27/2020 02:47:54 PM EDT [facility], PCName: Héctor JosueDOB: 2Provider: Desmond Blancas JoshDOS: 08/06/2020 Reason For VisitLeonard Joselo is here today for bilateral shoulders. Héctor had his first Covid vaccine on 05/14/20. Héctor had his second Covid vaccine on 06/11/21. Héctor Josue is a new patient and Héctor Josue is here for a second opinion. Patient reports ongoing pain for years. He reports 0/10 pain in the left, 2/10 pain in the right. He describes his pain as aching and interment. He manages with tylenol. His last cortisone injection is still working for the left and starting to wear off in the right. Surgery DOS: 2009; 2015. Surgery Description: right rcr; left shoulder scope. Patient is retired. History of Present IllnessCHIEF COMPLAINTSecond opinion of bilateral shoulder pain.HISTORY OF PRESENT ILLNESSThe patient is a 79-year-old male who is here for a second opinion of his bilateral shoulder pain. The patient is accompanied by an adult female. He is looking for an doctor closer to [place], where he lives. He has had pain ongoing for years. He had glenohumeral cortisone injections given on 05/27/2020. The left shoulder is working well and the right one has worn off. The right shoulder is more painful than the left. He denies any injury. The left shoulder really is 0/10 pain, the right shoulder is 2/10 achy. He has had surgery on both shoulders. The right shoulder was a rotator cuff tear in 2009 and the left shoulder was arthroscopy in 2016. He has intermittent pain. He takes Tylenol. He did physical therapy years ago. 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 He has had a cortisone and gel shot in last summer. The left shoulder is doing well after that. The right shoulder started working after 2 weeks. The right shoulder has been gradually worsening over the last couple of weeks. Overall, he has got problems in both shoulders; left shoulder seems to be doing well than his right shoulder.He plays golf. Results/Data OtherX-rays; AP, true AP internal rotation, and Y views, of the left shoulder previously obtained on 05/27/2020 at [facility] were reviewed today and reveal severe end-stage ezun-tz-eysp glenohumeral joint osteoarthritis with spurring of the inferior humeral head. It looks like he has a pacemaker in place as well.X-rays; AP internal rotation and external rotation, Y view, and axillary views, of the right shoulder previously obtained on 05/27/2020 at [facility] were reviewed today and reveal evidence of an anchor in the humeral head and wsed-og-wxln glenohumeral joint osteoarthritis. No lytic or blastic change. No fracture or dislocation. AssessmentASSESSMENT1. Bilateral shoulder primary glenohumeral joint osteoarthritis.2. Left shoulder recurrent atraumatic and complete rotator cuff tear. Plan Arthrogram (SOS) Referral Treatment Treatment Status: Need Information - FinancialAuthorization Requested for: [id number] Ordered;For: Right shoulder pain; Ordered By: Desmond Blancas Performed: Due: [id number]; Last Updated By: Sharad Carrizales; 08/06/2020 11:34:01 AMLaterality: : Right CT Scan (SOS) Referral Treatment Treatment Status: Need Information - FinancialAuthorization Requested for: [id number] Ordered;For: Right shoulder pain; Ordered By: Desmond Blancas Performed: Due: [id number]; Last Updated By: Sharad Carrizales; 08/06/2020 11:34:01 AMPatient will follow up with: : Dr. Hull and Body Part: : Right shoulder PL Pete, his , and I discussed his bilateral shoulders at length. My recommendation because the left shoulder is not hurting that bad today is to do a cortisone shot in the right shoulder glenohumeral joint, see how he does. He also wants to set up getting the right shoulder replaced. He has a pacemaker, so I am going to need a CAT scan arthrogram done of that right shoulder and then he is looking to do a right shoulder replacement, most likely a reverse in the fall or 12/2020. We will cross that bridge when that comes. We will get the arthrogram done and we will figure out what he needs to have done and go from there. The patient agrees with this plan.I advised the patient that steroid injections are frequently used to provide relief from musculoskeletal pain and to aid in the diagnosis of musculoskeletal problems. This injection offers a variety of benefits and various potential risks associated with the medication administered during the injection. I informed the patient that alternatives to this injection include no treatment, use of rehabilitation and exercise, use of a different medication (oral and injectable), and surgical intervention, when appropriate. I advised the patient that the risks associated with this injection include: an allergic reaction to the medication, pain at the injection site, possible infection of the injection site, facial flushing and skin changes, temp orary increase in blood sugar, tendon, muscle or nerve injury, avascular necrosis, and that there may actually not be a beneficial effect at all. Having discussed benefits, alternatives, and potential risks to the injection, the patient elected to proceed with the procedure. PROCEDUREIndications: Right shoulder pain.Procedure: Right shoulder glenohumeral joint cortisone injection.Description: Under sterile conditions, 6 mL of 1% lidocaine and 80 mg of Depo-Medrol were injected in the right shoulder without complication. The patient tolerated the procedure well. There was no injectable waste. Scribed by Cole Paredes on 08/06/2020 at 10:56 PM for Desmond Blancas Signatures Electronically signed by : Cole Paredes MA; Aug 06 2020 10:56PM EST (Author) Electronically signed by : Desmond Blancas M.D.; Aug 07 2020 6:29AM EST Name Value Range Interpretation Code Description Data Tena rce(s) Supporting Document(s) ID Date Data Source [id number] 08/05/2020 08:50:00 AM EDT [facility] PROTHROMBIN TIME Name Value Range Interpretation Code Description Data Tena rce(s) Supporting Document(s) WARFARIN? YES [facility] l 25.7 INR in Platelet poor plasma by Coagulation assay 2.5 1.0 - 4.5 [facility] Reference ranges Warf mercedez (Coumadin) Therapy: 21.6 - 40.7 secs Normal (Non-warfarin Therapy): 10.7 - 15.2 secs New Protime Reference Range as of February 21, 2020 ID Date Data Source [id number] 02/19/2020 08:30:00 AM EST [facility] Name Value Range Interpretation Code Description Data Tena rce(s) Supporting Document(s) PROTIME W/ANTICOAG 31.4 Secs 22.7 - 40.3 [facility] INR in Platelet poor plasma by Coagulation assay 3.0 2.0 - 4.5 [facility] New Protime Reference Range a s of February 01, 2019 ID Date Data Source [id number] 01/22/2020 08:45:00 AM EDT [facility] Name Value Range Interpretation Code Description Data Tena rce(s) Supporting Document(s) Cholesterol [Mass/volume] in Serum or Plasma 197 mg/dL [facility] Triglyceride [Mass/volume] in Serum or Plasma 204 mg/dL [facility] Cholesterol in HDL [Mass/volume] in Serum or Plasma 38 mg/dL [facility] Cholesterol in LDL [Mass/volume] in Serum or Plasma by calculati on 118 mg/dL [facility] CHOL/HDL 5.18 [facility] l \\BLDo\\INTERPRE TATION\\BLDx\\ REFERENCE RANGES (NATIONAL CHOLESTEROL EDUCATION PROGRAM) CHOLESTEROL < 200 mg/dL DESIREABLE 200 - 239 mg/dL BORDERLINE HIGH > 240 mg/dL HIGH TRIGLYCERIDES < 150 mg/dL DESIREABLE 150 - 199 mg/dL BORDERLINE HIGH 200 - 499 mg/dL HIGH > or = 500 mg/dL VERY HIGH HDL > or = 60 mg/dL HIGH < 40 mg/dL LOW LDL < 100 mg/dL DESIREABLE 100 - 129 mg/dL LOW RISK 130 - 159 mg/dL BORDERLINE HIGH 160 - 189 mg/dL HIGH > or = 190 mg/dL VERY HIGH ID Date Data Source [id number] 01/22/2020 08:45:00 AM EDT [facility] Name Value Range Interpretation Code Description Data Tena rce(s) Supporting Document(s) BASIC METABOLIC PANEL [facility] BASIC METABOLIC PANEL Sodium [Moles/volume] in Serum or Plasma 143 mEq/L 136 - 145 [facility] Potassium [Moles/volume] in Serum or Plasma 4.5 mEq/L 3.5 - 5.1 [facility] Chloride [Moles/volume] in Serum or Plasma 106 mEq/L 98 - 107 [facility] Carbon dioxide, total [Moles/volume] in Serum or Plasma 27.2 mEq /L 21.0 - 32.0 [facility] Glucose [Mass/volume] in Serum or Plasma 83 mg/dL 70 - 100 [facility] Urea nitrogen [Mass/volume] in Serum or Plasma 19 mg/dL 7 - 18 Above high normal [facility] CREATININE SERUM 1.05 mg/dL 0.70 - 1.30 [facility] AGE 79 yrs [facility] l eGFR NON-AFR AMR >60 [facility] eGFR AFR AMR >60 [facility] BUN/CREAT 18 6 - 25 [facility] Calcium [Mass/volume] in Serum or Plasma 8.9 mg/dL 8.8 - 10.2 [facility] ANION GAP 10 7 - 15 [facility] Estimated GFR reference r kori: > 60 mL/min/1.73m >18 years: Calculated using IDMS traceable MDRD Study Equation <18 years: Calculated using IDMS traceable Bedside Goins Equation ID Date Data Source [id number] 01/22/2020 08:45:00 AM EDT [facility] Name Value Range Interpretation Code Description Data Tena rce(s) Supporting Document(s) Digoxin [Mass/volume] in Serum or Plasma 0.46 ng/mL 0.90 - 2.00 Below low normal [facility] \\BLDo\\DIGOXIN TOXIC LEVEL\\BLDx\\ DIGOXIN LEVELS ABOVE 2.0 ng/mL MAY BE TOXIC. ID Date Data Source [id number] 01/22/2020 08:45:00 AM EDT [facility] Name Value Range Interpretation Code Description Data Tena rce(s) Supporting Document(s) PROTIME W/ANTICOAG 31.8 Secs 22.7 - 40.3 [facility] INR in Platelet poor plasma by Coagulation assay 3.1 2.0 - 4.5 [facility] New Protime Reference Range a s of February 01, 2019 ID Date Data Source [id number] 01/22/2020 08:45:00 AM EDT [facility] Name Value Range Interpretation Code Description Data Tena rce(s) Supporting Document(s) [facility] COMPLETE BLOOD [facility] Leukocytes [#/volume] in Blood by Automated count 7.2 K/uL 4.0 - 10 .0 [facility] Erythrocytes [#/volume] in Blood by Automated count 4.27 M/uL 4.30 - 6.10 Below low normal [facility] Hemoglobin [Mass/volume] in Blood 13.6 g/dL 13.5 - 17.5 [facility] Hematocrit [Volume Fraction] of Blood by Automated count 40.6 % 3 9.0 - 50.0 [facility] Erythrocyte mean corpuscular volume [Entitic volume] by Auto mated count 95.1 fL 80.0 - 96.0 [facility] Erythrocyte mean corpuscular hemoglobin [Entitic mass] by Automated count 31.9 pg 26.0 - 34.0 [facility] Erythrocyte mean corpuscular hemoglobin concentration [Mass/volume] by Automated count 33.5 g/dL 32.0 - 36.0 [facility] Erythrocyte distribution width [Ratio] by Automated count 12.6 % 11.6 - 14.8 [facility] Platelets [#/volume] in Blood by Automated count 191 K/uL 150 - 450 [facility] Platelet mean volume [Entitic volume] in Blood by Automated count 11.3 fL 7.1 - 10.4 Above high normal [facility] Neutrophils [#/volume] in Blood by Automated count 3.99 K/uL 1.70 - 7.70 [facility] Lymphocytes [#/volume] in Blood by Automated count 2.17 K/uL 1.50 - 6.00 [facility] Monocytes [#/volume] in Blood by Automated count 0.76 K/uL 0.00 - 1. 00 [facility] Eosinophils [#/volume] in Blood by Automated count 0.23 K/uL 0.00 - 0.30 [facility] Basophils [#/volume] in Blood by Automated count 0.04 K/uL 0.00 - 0. 10 [facility] 0.01 Urinalysis macro (dipstick) panel - Urine 0.000 10^3/uL 0.000 - 0.012 [facility] Neutrophils/100 leukocytes in Blood by Automated count 55.4 % 42. 2 - 75.2 [facility] Lymphocytes/100 leukocytes in Blood by Automated count 30.1 % 15. 0 - 41.0 [facility] Monocytes/100 leukocytes in Blood by Automated count 10.6 % 0.0 - 12.0 [facility] Eosinophils/100 leukocytes in Blood by Automated count 3.2 % 0.0 - 7.0 [facility] 0.60.10 NRBC 0.0 % [facility] MANUAL DIFF NOT INDICATED [facility] ospital RBC MORPH NOT INDICATED [facility] pital ID Date Data Source [id number] 12/25/2019 08:15:00 AM EDT [facility] Name Value Range Interpretation Code Description Data Tena rce(s) Supporting Document(s) PROTIME W/ANTICOAG 28.3 Secs 22.7 - 40.3 [facility] INR in Platelet poor plasma by Coagulation assay 2.7 2.0 - 4.5 [facility] New Protime Reference Range a s of February 01, 2019 Procedure Social History Code Duration Value Status Description Data Source(s ) Alcohol intake 12/11/2020 12:00:00 AM EDT Lifetime non-drinker (finding) completed Lifetime non-drinker (finding) [facility] Tobacco use and exposure 11/26/2020 12:00:00 AM EDT Never used co mpleted Never used [facility] Smoking 11/26/2020 12:00:00 AM EDT Never smoker completed Never s moker [facility] Alcohol intake 11/26/2020 12:00:00 AM EDT Lifetime non-drinker (finding) completed Lifetime non-drinker (finding) [facility] Vital Signs ID Date Data Source UNK Name Value Range Interpretation Code Description Data Source(s) Body mass index (BMI) [Ratio] 29.3 kg/m2 29.3 k g/m2 [facility] ([facility] ) Heart rate 96 /min 96 /min [facility] ([facility] [place] body weight 172 [lb_av] 172 [lb_av] [facility] ([facility]) Systolic blood pressure 129 mm[Hg] 129 mm[Hg] [facility] ([facility]) Diastolic blood pressure 79 mm[Hg] 79 mm[Hg] [facility] ([facility]) Body temperature 97.9 [degF] 97.9 [degF] [facility] ([facility]) Body height 71 [in_i] 71 [in_i] [facility] ([facility]) 5'11" Body weight 210.38 [lb_av] 210.38 [lb_av] [facility] ([facility]) Body weight 95.426 kg 95.426 kg [facility] ([facility]) Body surface area Derived from formula 2.15 m2 2.15 m2 [facility] ([facility]) Systolic blood pressure 115 mm[Hg] 115 mm[Hg] [facility] Diastolic blood pressure 72 mm[Hg] 72 mm[Hg] [facility] Heart rate 71 /min 71 /min [facility] Body temperature 36.22 [place] 36.22 Dom[place] [facility] Oxygen saturation in Arterial blood by Pulse oximetry 95 % 95 % [facility] Respiratory rate 14 /min 14 /min [facility] Body mass index (BMI) [Ratio] 30.42 kg/m2 30.42 kg/m2 [facility] Body height 177.8 cm 177.8 cm [facility] Body weight 96.163 kg 96.163 kg [facility] Systolic blood pressure 165 mm[Hg] 165 mm[Hg] [facility] Diastolic blood pressure 90 mm[Hg] 90 mm[Hg] [facility] Heart rate 70 /min 70 /min [facility] Body height 177.8 cm 177.8 cm [facility] Body weight 96.163 kg 96.163 kg [facility] Body mass index (BMI) [Ratio] 30.42 kg/m2 30.42 kg/m2 [facility] Oxygen saturation in Arterial blood by Pulse oximetry 99 % 99 % [facility] Patient Treatment Plan of Care Planned Activity Planned Date Details Description Data Source (s) Bisacodyl 10 MG Rectal Suppository 12/13/2020 06:00:00 AM EDT [facility] Magnesium Hydroxide 80 MG/ML Oral Suspension 12/12/2020 09:00:00 AM EDT [facility] tramadol hydrochloride 50 MG Oral Tablet 12/12/2020 12:00:00 AM EDT [facility] normal saline flush 0.9 % injection 3 mL 12/11/2020 02:00:00 PM EDT [facility] oxyCODONE (ROXICODONE) immediate release tablet 2.5 mg 12/11/2020 12:53:57 PM EDT [facility] Patient on Coumadin during hospitalizati on. (To order Coumadin on discharge click the don t prescribe button and go to new orders on discharge section. Coumadin can be ordered there. Alternatively, reconcile the pre admission Coumadin dose if it appears on the list below) 12/11/2020 12:53:57 PM EDT [facility] fluticasone (FLONASE) 50 MCG/ACT nasal spray 1 spray 021 12:53:56 PM EDT [facility] Metoclopramide 10 MG Oral Tablet 12/11/2020 12:53:56 PM EDT [facility] 2 ML Metoclopramide 5 MG/ML Prefilled Syringe 12/11/2020 12:53:56 P M EDT [facility] Ondansetron 4 MG Disintegrating Oral Tablet 12/11/2020 12:53:56 PM EDT [facility] ondansetron (ZOFRAN) injection 4 mg 12/11/2020 12:53:56 PM EDT [facility] metaxalone 800 MG Oral Tablet 12/11/2020 12:53:56 PM EDT [facility] Mineral Oil 1000 MG/ML Enema 12/11/2020 12:53:56 PM EDT [facility] Oxycodone Hydrochloride 5 MG Oral Tablet 12/11/2020 12:53:56 PM EDT [facility] fentaNYL Citrate (PF) (SUBLIMAZE) injection 25 mcg 12/11/2020 12 :53:56 PM EDT [facility] Calcium Carbonate 500 MG Chewable Tablet 12/11/2020 12:53:55 PM EDT [facility] Aluminum Hydroxide 40 MG/ML / Magnesium Hydroxide 40 MG/ML / Simethicone 4 MG/ML Oral Suspension 12/11/2020 12:53:55 PM EDT [facility] celecoxib 200 MG Oral Capsule [facility]
[2021-02-12] MEDS ORDERED: ceFAZolin SOD 2 GM in IV 1 EA IV ONE (07:00)
[2021-02-12] MEDS ORDERED: LR 1,000 ML IV ONE (07:00)
[2021-02-12] MEDS ORDERED: BUPIVACAINE/EPIN 0.25% 30 ML VIAL As Ordered ONE (07:13)
[2021-02-12 07:15] LABS: INR 1.09; PROTHROMBIN TIME 14.5 SECONDS (12.7-14.5)
[2021-02-12 07:16] LABS: PARTIAL THROMBOPLASTIN TIME 29.3 SECONDS (25.9-37.0)
[2021-02-12] MEDS ORDERED: propofoL 200 MG/20 ML VIAL As Ordered ONE (07:58)
[2021-02-12] MEDS ORDERED: LIDOCAINE 2% 100MG/5ML SDV (FOR ANES.) As Ordered ONE (07:58)
[2021-02-12] MEDS ORDERED: ROCURONIUM BROMIDE 50 MG/5 ML VIAL As Ordered ONE ×2 (07:58→08:00)
[2021-02-12] MEDS ORDERED: fentaNYL 100 MCG/2 ML INJECTION (J3010) As Ordered ONE ×2 (07:58→07:59)
[2021-02-12] MEDS ORDERED: dexameTHASONE 4 MG/ML 1ML VIAL (J1100 PER 1MG) As Ordered ONE (07:58)
[2021-02-12] MEDS ORDERED: MIDAZOLAM INJ 2MG/2ML VIAL (J2250 PER 1MG) As Ordered ONE (07:58)
[2021-02-12] MEDS ORDERED: METOCLOPRAMIDE INJ 10MG/2ML VIAL (J2765 PER 1) As Ordered ONE (07:58)
[2021-02-12] MEDS ORDERED: ONDANSETRON 4MG/2ML VIAL As Ordered ONE (07:58)
[2021-02-12] MEDS ORDERED: ACETAMINOPHEN 1000MG 100ML IV BTL (OFIRMEV) (J0131 PER 10MG) As Ordered ONE (07:58)
[2021-02-12] MEDS ORDERED: SUGAMMADEX SODIUM 500 MG/5 ML VIAL (BRIDION) As Ordered ONE (07:58)
[2021-02-12] MEDS ORDERED: DESFLURANE 240 ML INHALANT As Ordered ONE (07:58)
[2021-02-12] MEDS ORDERED: oxyCODONE 5MG TAB PO PRN (08:45)
[2021-02-12] MEDS ORDERED: HYDROMORPHONE HCL 0.5 MG/ 0.5 ML SYRINGE (J1170 PER 1) IV PRN (08:45)
[2021-02-12] MEDS ORDERED: LR 1,000 ML IV SCH (08:45)
[2021-02-12] MEDS ORDERED: ONDANSETRON 4MG/2ML VIAL IV PRN (08:45)
[2021-02-12] MEDS ORDERED: fentaNYL 100 MCG/2 ML INJECTION (J3010) IV PRN (08:45)
[2021-02-12] MEDS ORDERED: PERCOCET 5MG/325MG TAB PO PRN (08:50)
[2021-02-12] MEDS ORDERED: traMADol 50 MG TAB PO PRN (08:50)
--- NOTE | 2021-02-12 09:03 | RO ---
OPERATIVE NOTE DATE OF OPERATION: 02/12/2021 PREOPERATIVE DIAGNOSIS: Right inguinal hernia. POSTOPERATIVE DIAGNOSIS: Right inguinal hernia. PROCEDURE: Robotic-assisted laparoscopic right inguinal hernia repair with ProGrip mesh. SURGEON: Jourdan France Jr., MD [employer]ER: ISABEL Farooq (provided trocar placement, instrument exchange, mesh placement and abdominal wall closure). ANESTHESIA: General endotracheal anesthesia. ESTIMATED BLOOD LOSS: Minimal. FLUIDS: Crystalloid. BRIEF PROCEDURE SUMMARY: The patient was brought to the operating room and was given general anesthesia. After adequate anesthesia and preoperative antibiotics were given, the patient was prepped and draped in the usual sterile fashion. Next, a supraumbilical incision was made with a skin knife. Blunt dissection was carried down to fascia. The fascia was entered with Veress needle and insufflated to 15 mm of pressure, An 8 mm trocar was placed and under direct visualization, right-sided and a left-sided 8 mm trocars were placed under direct visualization. Next, the robot was docked and the patient was placed in steep Trendelenburg and the peritoneum was taken down with monopolar cut scissors. As such, the peritoneum was taken down nicely. This was a direct inguinal hernia and thus, the peritoneum was taken off the cord structures quite nicely and then medial to this, the hernia sac was reduced and the Abelardo's as well as lateral border of the pubis and even up onto the pubis itself was seen quite nicely in this area. After the vessels and the vas were nicely identified and dissected free of surrounding tissue as well, the ProGrip mesh was cut to the appropriate size, pressed into position and the peritoneum was closed over the top of this using 3-0 V-Loc suture. The abdomen was desufflated under direct visualization. All trocars were removed under direct visualization and the trocar sites were closed with 4-0 Vicryl in the skin layer. Steri-Strips and dry sterile dressing were applied. The patient was awakened, extubated and brought to the recovery room awake, alert, hemodynamically stable. Sponge and needle counts were correct x2.
[2021-02-12 10:30] VITALS: BP 167/81
== END 2021-02-12 10:30 | disposition home or self-care (01) ==
LOC: M SDC 06:12
PROVIDERS: ATTEND Surgery
DX: K40.90 Unilateral inguinal hernia, without obstruction or gangrene, not specified as recurrent (principal); I10 Essential (primary) hypertension; I48.91 Unspecified atrial fibrillation; Z95.0 Presence of cardiac pacemaker; Z79.01 Long term (current) use of anticoagulants; E78.5 Hyperlipidemia, unspecified
CPT/HCPCS: 36415; 49650; 85610; 85730; C1781; J0131; J0690; J1100; J2250; J2405; J2765; J3010; S2900

== ENCOUNTER → 2021-03-02 | Outpatient (REF) ==
[~2021-03-02] MED LIST changes: -LIDOCAINE 1% MDV 20ML VIAL SQ PRN
[2021-03-02 12:52] LABS: INR 2.17; PROTHROMBIN TIME 24.5 SECONDS (12.7-14.5)
== END ==
LOC: M LAB REF 12:24
DX: I48.20 Chronic atrial fibrillation, unspecified (principal); Z79.01 Long term (current) use of anticoagulants

== ENCOUNTER → 2021-12-21 | Outpatient (CLI) | payer MEDICARE | LOC: M CARPUL 13:18 | DX: I48.20 Chronic atrial fibrillation, unspecified (principal); Z95.0 Presence of cardiac pacemaker; I10 Essential (primary) hypertension; I08.9 Rheumatic multiple valve disease, unspecified ==

== ENCOUNTER 2022-01-12 08:11 | Day surgery (SDC) | payer MEDICARE ==
[~2022-01-12] VITALS: Ht 177.8 cm; Wt 95.3 kg
[~2022-01-12 08:11] MED LIST changes: +BSS IRRIG/VANCO(10MG)/TOBRA(5MG)/EPINEPH(1:1000-0.5CC)500ML BAG-ORONLY IR ONE; +CEFUROXIME 1MG/0.1ML INTRACAMERAL INJ As Ordered ONE; +CYCLOPENTOLATE 1% OPHTH SOLN 2 ML BTL OS SCH; +LIDOCAINE 1% SDV 5ML VIAL As Ordered ONE; +LIDOCAINE 3.5 % 1ML OPHTH TOPICAL GEL OU ONE; +MIDAZOLAM INJ 2MG/2ML VIAL (J2250 PER 1MG) As Ordered ONE; +OFLOXACIN 0.3 % (OCUFLOX) OPTH SOL 5ML OS ONE; +PHENYLEPHRINE 2.5% OPHTH SOL 2ML OS SCH; +PHENYLEPHRINE HCL 10 % OPHTH. SOL 5ML OS PRN; +TROPICAMIDE 1% OPHTH SOLN 2ML OS SCH; +fentaNYL 100 MCG/2 ML INJECTION As Ordered ONE
[2022-01-12 11:20] VITALS: BP 164/88
[2022-01-18] MEDS ORDERED: GNP250TA9 PO (08:01)
== END 2022-01-12 11:54 | disposition home or self-care (01) ==
LOC: M SDC 08:11
PROVIDERS: ATTEND Ophthalmology
DX: H25.11 Age-related nuclear cataract, right eye (principal); I11.9 Hypertensive heart disease without heart failure; Z95.0 Presence of cardiac pacemaker
CPT/HCPCS: 66984; 92015; J0697; J2250; J3010; V2788

== ENCOUNTER 2022-01-19 07:15 | Day surgery (SDC) | payer MEDICARE ==
[~2022-01-19] VITALS: Ht 177.8 cm; Wt 96.6 kg
[~2022-01-19 07:15] MED LIST changes: +CYCLOPENTOLATE 1% OPHTH SOLN 2 ML BTL OD SCH; -CYCLOPENTOLATE 1% OPHTH SOLN 2 ML BTL OS SCH; +GNP250TA9 PO; +OFLOXACIN 0.3 % (OCUFLOX) OPTH SOL 5ML OD ONE; -OFLOXACIN 0.3 % (OCUFLOX) OPTH SOL 5ML OS ONE; +PHENYLEPHRINE 2.5% OPHTH SOL 2ML OD SCH; -PHENYLEPHRINE 2.5% OPHTH SOL 2ML OS SCH; +PHENYLEPHRINE HCL 10 % OPHTH. SOL 5ML OD PRN; -PHENYLEPHRINE HCL 10 % OPHTH. SOL 5ML OS PRN; +TROPICAMIDE 1% OPHTH SOLN 2ML OD SCH; -TROPICAMIDE 1% OPHTH SOLN 2ML OS SCH
[2022-01-19 08:29] VITALS: BP 149/75
== END 2022-01-19 09:16 | disposition home or self-care (01) ==
LOC: M SDC 07:15
PROVIDERS: ATTEND Ophthalmology
DX: H25.11 Age-related nuclear cataract, right eye (principal); I48.91 Unspecified atrial fibrillation; I10 Essential (primary) hypertension; E78.5 Hyperlipidemia, unspecified; Z95.0 Presence of cardiac pacemaker; Z79.01 Long term (current) use of anticoagulants; Z79.899 Other long term (current) drug therapy
CPT/HCPCS: 66984; 92015; J0697; J2250; J3010; V2788

== ENCOUNTER → 2024-01-01 | Outpatient (REF) | payer MEDICARE ==
[~2024-01-01] MED LIST changes: -BSS IRRIG/VANCO(10MG)/TOBRA(5MG)/EPINEPH(1:1000-0.5CC)500ML BAG-ORONLY IR ONE; -CEFUROXIME 1MG/0.1ML INTRACAMERAL INJ As Ordered ONE; -CYCLOPENTOLATE 1% OPHTH SOLN 2 ML BTL OD SCH; -LIDOCAINE 1% SDV 5ML VIAL As Ordered ONE; -LIDOCAINE 3.5 % 1ML OPHTH TOPICAL GEL OU ONE; -MIDAZOLAM INJ 2MG/2ML VIAL (J2250 PER 1MG) As Ordered ONE; -OFLOXACIN 0.3 % (OCUFLOX) OPTH SOL 5ML OD ONE; -PHENYLEPHRINE 2.5% OPHTH SOL 2ML OD SCH; -PHENYLEPHRINE HCL 10 % OPHTH. SOL 5ML OD PRN; -TROPICAMIDE 1% OPHTH SOLN 2ML OD SCH; -fentaNYL 100 MCG/2 ML INJECTION As Ordered ONE
== END ==
LOC: M LAB REF 16:22
PROVIDERS: ATTEND Internal Medicine
DX: I48.0 Paroxysmal atrial fibrillation (principal)

== ENCOUNTER → 2024-01-02 | Outpatient (REF) | payer MEDICARE | LOC: M SFHCDERM 17:59 | PROVIDERS: ATTEND Dermatology | DX: D48.5 Neoplasm of uncertain behavior of skin (principal) ==